=== PATIENT | female | born 1990 | race Caucasian/White ===

== ENCOUNTER → 2018-08-22 | Outpatient (CLI) | payer OTHER ==
[2018-08-22 13:58] VITALS: BP 141/79; PULSE 80; RESP 16; TEMP 97.4; BMI 55.4
--- NOTE | 2018-08-22 14:44 | P.HPOB ---
History of Present Illness H&P Date: 08/22/18 Chief Complaint: The patient is here for her routine gynecologic exam. This is a 28-year-old G0 with an LMP of 08/15/2018. She is here to establish with this office. It has been about 2 years since her last pelvic exam. Her fianc is status post vasectomy. Menstrual periods are about everyone to 1 1/2 months. She has experienced slight pruritus in the region of the pubic hair. She denies any vaginal discharge. She states she can feel small areas that feel like grains of sand near the clitoris and occasionally can be painful. Review of Systems She believes she has lost about 23 pounds with Adipex. She denies respiratory, cardiac, or G.I. problems. Past Medical History Past Medical History: Diabetes Mellitus, Hypertension, Osteoarthritis (OA) Additional Past Medical History / Comment(s): DEPRESSION,BORDERLINE DIABETIC. Kidney stone 2011. 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 History of Any Multi-Drug Resistant Organisms: None Reported Additional Past Surgical History / Comment(s): 2007 COSMETIC LEFT EYE Past Psychological History: Depression Additional Psychological History / Comment(s): NON SUICIDAL Smoking Status: Never smoker Past Alcohol Use History: None Reported Past Drug Use History: None Reported, Marijuana Additional Drug Use History / Comment(s): Used in medical marijuana in the past for arthritis. Discontinued April 2018 per the patient. Additional History: She is engaged to be and the date has been tentatively set in January 2019. 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 - Past Family History Father Family Medical History: Cancer Additional Family Medical History / Comment(s): Lung cancer. Mother Family Medical History: No Reported History Additional Family Medical History / Comment(s): Maternal grandmother had renal failure. Medications and Allergies Home Medications Medication Instructions Recorded Confirmed Type FLUoxetine HCL 20 mg PO DAILY 08/21/18 08/22/18 History Ibuprofen [Motrin] 800 mg PO PRN 08/21/18 08/21/18 History Phentermine HCl [Adipex-P] 37.5 mg PO DAILY 08/21/18 08/22/18 History Lisinopril [Zestril] 10 mg PO DAILY 08/22/18 08/22/18 History Allergies Allergy/AdvReac Type Severity Reaction Status Date / Time Sulfa (Sulfonamide Allergy Rash/Hives Verified 08/21/18 11:36 Antibiotics) Exam Vital Signs Temp Pulse Resp BP Pulse Ox 08/22/18 13:24 97.4 F L 80 16 141/79 97 Intake and Output 08/21/18 08/22/18 08/22/18 22:59 06:59 14:59 Other: Weight 141.974 kg Height 5'3", weight 313 pounds, BMI 55.4. This is a well-developed well-nourished obese white female who is alert and oriented times 3 in no acute distress. HEENT: Within normal limits. NECK: Supple without mass or thyromegaly. CHEST AND LUNGS: Clear to auscultation. HEART: Regular rate and rhythm. BREASTS: Are without mass or discharge. The right nipple has a piercing which is noninflamed. AXILLARY EXAM: Negative for adenopathy. BACK: Negative for CVA tenderness. ABDOMEN: Soft, obese, nontender, without palpable masses. PELVIC EXAM: there is a small 2 mm inclusion cyst at the anterior aspect of the right labia minora near the clitoris. Patient states she has felt this when she feels in that area. It is nontender and noninflamed. It appears benign. The rest of the external genitalia is within normal limits. Cervix and vagina appear normal. There is no unusual discharge. There is no evidence of prolapse. There is no cervical motion tenderness. The uterus is midposition, nongravid size and nontender. There are no palpable adnexal masses or tenderness. RECTAL EXAM: deferred EXTREMITIES: Nontender. IMPRESSION: 1. 28-year-old female with benign appearing small right labia minora inclusion cyst measuring 2 mm. 2. Vulvar pruritus without evidence of noe vaginitis. 3. Obesity. PLAN: 1. Pap smear was performed. 2. Self breast awareness was discussed with the patient. 3. I have reassured the patient regarding the labial inclusion cyst. She will check it on a regular basis and let me know if it is increasing in size, becom ing more painful or if problems. I have asked her to not try to squeeze it or pop the cyst. 4. Kenalog 0.1% cream BID PRN for Vulvar pruritus. The electronic prescription will be sent to [facility] pharmacy on [address] 5. She will return in one year and PRN. 6. The patient has an appointment to see Dr. Logan regarding bariatric surgery for her obesity.
== END ==
LOC: WWCWWP 13:07
PROVIDERS: ATTEND Obstetrics & Gynecology
DX: Z53.9 Procedure and treatment not carried out, unspecified reason (principal)

== ENCOUNTER → 2018-08-24 | Outpatient (CLI) | payer OTHER ==
[2018-08-24 13:25] VITALS: BP 127/84; PULSE 88; RESP 16; TEMP 98; BMI 52.6
--- NOTE | 2018-08-24 13:56 | P.HPBAR ---
Bariatric H&P - History & Physicial H&P Date: 08/24/18 History & Physicial: Visit/CC: Patient initial contact: Initial weight: Initial weight in pounds: Height: Initial BMI: Last weight: Current weight: Current weight in pounds: Current BMI: [place] body weight (based on NIH guidelines): Excess body weight loss: The patient is a 28 year-old F who presents for Bariatric Assessment. Patient here today for new bariatric assessment. Patient has had complaints of her morbid obesity since she was a teenager. She has tried a variety of different weight loss methods. Currently interested in sleeve gastrectomy. She has many friends that of had both a sleeve gastrectomy and other bariatric procedures. Patient suffers from diabetes, hypertension, arthritis, GERD symptoms. No history of EGD, no dysphagia, no history of DVT. Patient BMI currently 52. Patient is actually lost 32 pounds with last 3 months. She is 3 months into her supervised weight loss program. Review of Systems The patient denies any acute changes in vision or hearing, no dysphagia or odynophagia, no chest pain or shortness of breath, no dysuria or hematuria, no headache, no runny nose, no rectal bleeding or melena, no unexplained weight loss Past Medical History Past Medical History: Diabetes Mellitus, Hypertension, Osteoarthritis (OA) Additional Past Medical History / Comment(s): DEPRESSION,BORDERLINE DIABETIC. Kidney stone 2011. 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 History of Any Multi-Drug Resistant Organisms: None Reported Additional Past Surgical History / Comment(s): 2006 COSMETIC LEFT EYE Past Anesthesia/Blood Transfusion Reactions: No Reported Reaction Past Psychological History: Depression Additional Psychological History / Comment(s): NON SUICIDAL Smoking Status: Never smoker Past Alcohol Use History: None Reported Past Drug Use History: None Reported, Marijuana Additional Drug Use History / Comment(s): Used in medical marijuana in the past for arthritis. Discontinued April 2018 per the patient. - Past Family History Mother Family Medical History: CVA/TIA Father Additional Family Medical History / Comment(s): alcoholic Surgical - Exam Physical exam: General: Well-developed, well-nourished HEENT: Normocephalic, sclerae nonicteric Abdomen: Nontender, nondistended Extremities: No edema Neuro: Alert and oriented Bariatric Assessment & Plan (1) Morbid obesity due to excess calories Narrative/Plan: The risks and benefits of the various bariatric procedures were discussed in detail with the patient. The patient remains interested in sleeve gastrectomy. The patient would like to have the sleeve gastrectomy performed prior to her wedding in January. We'll tentatively plan EGD in October or November. Preoperative lab work ordered. Patient will be seen back in the clinic prior to scheduling. Status: Acute Bariatric Checklist Checklist: Plan: Checklist: EGD: 1. Hiatal hernia: 2. H. Pylori: HgbA1c: Vitamin D: Smoking: Never smoker Primary care physician referral: Psychiatry clearance: Cardiology clearance: Sleep study: Diet journal: VTE risk score: VTE risk level: Rehab needs at discharge:
[2018-08-24 14:36] LABS: HCT 36.2 % (34.0-46.0); HGB 11.5 gm/dL (11.4-16.0); MCH 26.3 pg (25.0-35.0); MCHC 31.8 g/dL (31.0-37.0); MCV 82.7 fL (80.0-100.0); Mean Platelet Volume 5.8; Platelet Count 432 k/uL (150-450); RBC 4.37 m/uL (3.80-5.40); RDW 13.9 % (11.5-15.5); WBC 10.8 k/uL (3.8-10.6)
[2018-08-24 18:03] LABS: Albumin 4.3 g/dL (3.80-4.90); Albumin/Globulin Ratio 1.65 (1.60-3.17); Anion Gap 9.7 mmol/L (4.00-12.00); Calcium 9.2 mg/dL (8.7-10.3); Carbon Dioxide 25.3 mmol/L (21.6-31.8); Globulin 2.6 g/dL (1.6-3.3); Potassium 3.8 mmol/L (3.5-5.5); Total Bilirubin 0.4 mg/dL (0.2-1.2); Total Protein 6.9 g/dL (6.2-8.2)
[2018-08-24 18:10] LABS: Vitamin D 25 Hydroxy 25.6 ng/mL (30.0-100.0)
[2018-08-24 18:18] LABS: Folate, Serum >24.0 ng/mL
== END ==
LOC: BARWHC3 12:51
PROVIDERS: ATTEND Surgery
DX: E66.01 Morbid (severe) obesity due to excess calories (principal); K90.89 Other intestinal malabsorption; E55.9 Vitamin D deficiency, unspecified; E11.9 Type 2 diabetes mellitus without complications; Z68.43 Body mass index [BMI] 50.0-59.9, adult
CPT/HCPCS: 84425; 80053; 82607; 82746; 83540; 85027; 82306; 93005; G0463; 99211

== ENCOUNTER 2018-10-04 07:15 | Day surgery (SDC) | payer OTHER ==
[2018-09-28 11:37] VITALS: BMI 53.4
[~2018-10-04 07:15] MED LIST: LACTATED RINGERS 1,000 ML IV SCH; LIDOCAINE 1% 20 ML VIAL (10MG/ML) FOR IV START INTRADERMA PRN
[2018-10-04 07:43] VITALS: TEMP 98.2
[2018-10-04] MEDS ORDERED: LACTATED RINGERS 1,000 ML IV ONE (07:47)
[2018-10-04] MEDS ORDERED: PROPOFOL 10 MG/ML 20 ML VIAL IV ONE (07:53)
--- NOTE | 2018-10-04 08:03 | P.GSHP ---
History of Present Illness H&P Date: 10/04/18 Chief Complaint: gerd Patient presents today for upper endoscopy. Patient is being evaluated for sleeve gastrectomy. Patient has mild reflux symptoms. Denies dysphagia. Past Medical History Past Medical History: Diabetes Mellitus, GERD/Reflux, Hypertension, Osteoarthritis (OA), Skin Disorder Additional Past Medical History / Comment(s): occ palpitations, migraines, skin rash in winter with dry patches, "borderline diabetic"-diet control, anemia, hx kidney stone History of Any Multi-Drug Resistant Organisms: None Reported Additional Past Surgical History / Comment(s): 2006 COSMETIC LEFT EYE Past Anesthesia/Blood Transfusion Reactions: No Reported Reaction Past Psychological History: Anxiety, Depression Additional Psychological History / Comment(s): . Smoking Status: Never smoker Past Alcohol Use History: Occasional Past Drug Use History: None Reported, Marijuana Additional Drug Use History / Comment(s): Used in medical marijuana in the past for arthritis. Discontinued April 2018 per the patient. - Past Family History Father Family Medical History: Cancer Additional Family Medical History / Comment(s): Lung cancer. Mother Family Medical History: No Reported History Additional Family Medical History / Comment(s): Maternal grandmother had renal failure. Medications and Allergies Home Medications Medication Instructions Recorded Confirmed Type FLUoxetine HCL 20 mg PO DAILY 08/21/18 09/28/18 History Ibuprofen [Motrin] 800 mg PO TID PRN 08/21/18 09/28/18 History Phentermine HCl [Adipex-P] 37.5 mg PO DAILY 08/21/18 09/28/18 History Lisinopril [Zestril] 10 mg PO HS 08/22/18 09/28/18 History Iron(Dose Unknown) 1 tab PO BID 09/28/18 09/28/18 History Multivitamin [Multivitamins Adult 2 each PO DAILY 09/28/18 09/28/18 History Gummies] [place]-3 Gummies 2 tab PO DAILY 09/28/18 09/28/18 History Allergies Allergy/AdvReac Type Severity Reaction Status Date / Time Sulfa (Sulfonamide Allergy Rash/Hives Verified 09/28/18 11:28 Antibiotics) Surgical - Exam Vital Signs Temp Pulse Resp BP Pulse Ox 98.2 F 86 20 144/76 98 10/04/18 07:41 10/04/18 07:41 10/04/18 07:41 10/04/18 07:41 10/04/18 07:41 Physical exam: General: Well-developed, well-nourished HEENT: Normocephalic, sclerae nonicteric Abdomen: Nontender, nondistended Extremities: No edema Neuro: Alert and oriented Assessment and Plan (1) GERD (gastroesophageal reflux disease) Narrative/Plan: Will proceed with upper endoscopy. Current Visit: Yes Status: Acute Code(s): K21.9 - GASTRO-ESOPHAGEAL REFLUX DISEASE WITHOUT ESOPHAGITIS SNOMED Code(s): 439546479
--- NOTE | 2018-10-04 08:09 | P.PCN ---
Date of Procedure: 10/04/18 Procedure(s) Performed: Preoperative Dx: GERD, presurgical Postoperative Dx: Mild gastritis Procedure: EGD with Bx Anesthesia: Sedation Endoscopist: Dr. Logan Specimens: Antrum Endoscopic Procedure: The patient was on the endoscopy table in the left decubitus position. The Olympus gastroscope was inserted into the oropharynx and passed under direct visualization to the region of the third portion of the duodenum. From that point the scope was slowly withdrawn inspecting all surfaces carefully. There were no neoplastic inflammatory or polypoid lesions throughout the duodenum. The pylorus was widely patent. The stomach was carefully inspected. There was mild gastritis present. A biopsy of the antrum took place to rule out H. pylori. Retroflexion revealed a normal hiatus. The esophagus was then carefully examined. There were no neoplastic inflammatory or polypoid lesions throughout the visualized esophagus. The patient was then taken to the recovery room in stable condition per anesthesia guidelines. Recommendations: Await biopsy results. Proceed with upcoming sleeve gastrectomy.
[2018-10-04 08:18] VITALS: RESP 16
[2018-10-04 08:47] VITALS: BP 116/75; PULSE 73
== END 2018-10-04 08:59 | disposition home or self-care (01) ==
LOC: ORWHC2ENDO 07:15
PROVIDERS: ATTEND Surgery
DX: K29.50 Unspecified chronic gastritis without bleeding (principal); K21.9 Gastro-esophageal reflux disease without esophagitis; E11.9 Type 2 diabetes mellitus without complications; I10 Essential (primary) hypertension; F41.9 Anxiety disorder, unspecified; F32.9 Major depressive disorder, single episode, unspecified; Z79.1 Long term (current) use of non-steroidal anti-inflammatories (NSAID); Z79.899 Other long term (current) drug therapy; Z88.2 Allergy status to sulfonamides; M19.90 Unspecified osteoarthritis, unspecified site; Z87.442 Personal history of urinary calculi
CPT/HCPCS: 81025; 88305; 43239; J2704

== ENCOUNTER → 2018-11-27 | Outpatient (CLI) | payer OTHER ==
[2018-11-27 13:59] VITALS: BMI 53.5
== END | disposition home or self-care (01) ==
LOC: BARWHC3 08:37
PROVIDERS: ATTEND Surgery
DX: E66.01 Morbid (severe) obesity due to excess calories (principal); Z68.43 Body mass index [BMI] 50.0-59.9, adult
CPT/HCPCS: 97804

== ENCOUNTER → 2019-01-02 | Outpatient (CLI) | payer OTHER ==
[2019-01-02 13:45] VITALS: BP 103/65; PULSE 90; RESP 16; TEMP 98; BMI 54.6
--- NOTE | 2019-01-02 14:32 | P.BASOAP ---
Subjective Progress Note Date: 01/02/19 Principal diagnosis: Morbid obesity Patient here today for follow-up visit. Last seen in September. Had upper endoscopy showing mild gastritis at that time. Still interested in sleeve gastrectomy. Did demonstrate slow steady weight loss with her supervised diets visits. No change in her medical history. Objective - Vital Signs Vital signs: Vital Signs Temp 98 F 01/02/19 13:42 Pulse 90 01/02/19 13:42 Resp 16 01/02/19 13:42 BP 103/65 01/02/19 13:42 Pulse Ox Intake & Output 01/01/19 01/02/19 01/02/19 18:59 06:59 18:59 Weight 143.335 kg - Exam Abdomen: Soft, nontender, nondistended Assessment/Plan (1) Morbid obesity due to excess calories Narrative/Plan: Surgical consent form reviewed with the patient in details. Risks and benefits discussed. All questions answered. Patient remains interested in sleeve gastrectomy. Surgery tentatively scheduled on 02/02. Plan: Date: 01/02/19 Initial Weight: 137.892 kg Initial BMI: 52.6 Current Weight: 143.335 kg Current BMI: 54.6 Type of Surgery: Total Volume in Band: Previous Volume: Volume Removed: Volume Added: Band Size:
== END | disposition home or self-care (01) ==
LOC: BARWHC3 13:25
PROVIDERS: ATTEND Surgery
DX: E66.01 Morbid (severe) obesity due to excess calories (principal); Z68.43 Body mass index [BMI] 50.0-59.9, adult
CPT/HCPCS: 99211

== ENCOUNTER → 2019-01-02 | Outpatient (CLI) | payer OTHER ==
[2019-01-02 15:35] LABS: Basophils # (A) 0.1 k/uL (0-0.2); Basophils % (A) 1 %; Eosinophils # (A) 0.3 k/uL (0-0.7); Eosinophils % (A) 2 %; HCT 37.9 % (34.0-46.0); HGB 11.9 gm/dL (11.4-16.0); Lymphocytes # (A) 2.9 k/uL (1.0-4.8); Lymphocytes % (A) 23 %; MCH 26.6 pg (25.0-35.0); MCHC 31.3 g/dL (31.0-37.0); Mean Platelet Volume 6.1; Monocytes # (A) 0.7 k/uL (0-1.0); Monocytes % (A) 6 %; Neutrophils # (A) 8.3 k/uL (1.3-7.7); Neutrophils % (A) 66 %; Platelet Count 397 k/uL (150-450); RBC 4.46 m/uL (3.80-5.40); WBC 12.5 k/uL (3.8-10.6)
[2019-01-02 15:38] LABS: ALT 22 U/L (9-52); AST 21 U/L (14-36); African American GFR (CKD) >90 (>60 ml/min/1.73 sqM); Albumin 4.2 g/dL (3.5-5.0); Alkaline Phosphatase 73 U/L (38-126); Anion Gap 8 mmol/L; Blood Urea Nitrogen 15 mg/dL (7-17); Calcium 9.5 mg/dL (8.4-10.2); Carbon Dioxide 27 mmol/L (22-30); Chloride 104 mmol/L (98-107); Glucose 97 mg/dL (74-99); Sodium 139 mmol/L (137-145); Total Bilirubin 0.3 mg/dL (0.2-1.3); Total Protein 7.6 g/dL (6.3-8.2)
== END | disposition home or self-care (01) ==
LOC: LABPAT 14:35
PROVIDERS: ATTEND Surgery
DX: Z01.818 Encounter for other preprocedural examination (principal); Z01.812 Encounter for preprocedural laboratory examination
CPT/HCPCS: 36415; 80053; 85025; 93005

== ENCOUNTER 2019-02-02 07:01 | Inpatient (IN) | payer OTHER ==
[~2019-02-02 07:01] MED LIST changes: +ACETAMINOPHEN TAB 500 MG TAB PO ONE; +DEXAMETHASONE SOD PHOSPHATE 10 MG/ML 1 ML VIAL IV ONE; +ENOXAPARIN 40 MG/0.4 ML SYRINGE SQ ONE; -LACTATED RINGERS 1,000 ML IV SCH; +MELOXICAM 7.5 MG TAB PO ONE; +MIDAZOLAM 2 MG/2 ML VIAL IV PRN; +ONDANSETRON 4 MG/2 ML VIAL IVP ONE; +SCOPOLAMINE 1.5MG/72HR PATCH TRANSDERM ONE; +ceFAZolin 3 GM in SODIUM CHLORIDE 0.9% 100 ML IVPB ONE
--- NOTE | 2019-02-02 07:40 | P.GSHP ---
History of Present Illness H&P Date: 02/02/19 Chief Complaint: Morbid obesity Patient today for elective sleeve gastrectomy. The patient is been followed in the outpatient setting. She is not interested in alternative bariatric procedures. Recent upper endoscopy showed gastritis but no hiatal hernia. Patient has history of diabetes, hypertension, GERD, arthritis. No history of DVT or dysphagia in the past. Preoperative levels were low. She was told is related to her heavy menstrual flow and she is on iron supplementation. Past Medical History Past Medical History: Diabetes Mellitus, GERD/Reflux, Hypertension, Osteoarthritis (OA) Additional Past Medical History / Comment(s): Occ palpitations, "borderline diabetic"-diet control, Anemia, hx kidney stone. Varicose Veins. RLS. History of Any Multi-Drug Resistant Organisms: None Reported Additional Past Surgical History / Comment(s): 2006 COSMETIC LEFT EYE. EGD. Past Anesthesia/Blood Transfusion Reactions: Family History of Problems w/ Anesthesia Additional Past Anesthesia/Blood Transfusion Reaction / Comment(s): MOTHER HAD SEVERE PONV Smoking Status: Never smoker - Past Family History Mother Family Medical History: CVA/TIA Father Additional Family Medical History / Comment(s): alcoholic Medications and Allergies Home Medications Medication Instructions Recorded Confirmed Type FLUoxetine HCL 20 mg PO DAILY 08/21/18 01/25/19 History Phentermine HCl [Adipex-P] 37.5 mg PO DAILY 08/21/18 01/25/19 History Lisinopril [Zestril] 10 mg PO HS 08/22/18 01/25/19 History Calcium Carbonate [Tums] 1,000 mg PO QID PRN 01/25/19 01/25/19 History Ibuprofen [Motrin] 800 mg PO Q8H PRN 01/25/19 01/25/19 History Multivitamin [Multivitamins Adult 2 each PO DAILY 01/25/19 01/25/19 History Gummies] Allergies Allergy/AdvReac Type Severity Reaction Status Date / Time Sulfa (Sulfonamide Allergy Rash/Hives Verified 01/25/19 12:07 Antibiotics) Surgical - Exam Vital Signs Temp Pulse Resp BP Pulse Ox 97.7 F 83 16 154/70 97 02/02/19 07:32 02/02/19 07:32 02/02/19 07:32 02/02/19 07:32 02/02/19 07:32 Physical exam: General: Well-developed, well-nourished HEENT: Normocephalic, sclerae nonicteric Abdomen: Nontender, nondistended Extremities: No edema Neuro: Alert and oriented Assessment and Plan (1) Morbid obesity due to excess calories Narrative/Plan: Will proceed with laparoscopic sleeve gastrectomy at this time, possible open. The risks of bleeding, infection, stenosis, stricture, leak, abscess, fistula formation, peritonitis, poor weight loss, reflux, vomiting, conversion to an open procedure, aborting sleeve gastrectomy, OK, PE, DVT, and were discussed. The patient understands and wishes to proceed. Current Visit: No Status: Acute Code(s): E66.01 - MORBID (SEVERE) OBESITY DUE TO EXCESS CALORIES SNOMED Code(s): 761896134
[2019-02-02] MEDS: LACTATED RINGERS 1,000 ML IV SCH (07:43)
[2019-02-02] MEDS ORDERED: ROCURONIUM BROMIDE 10 MG/ML 10 ML VIAL IV ONE (07:55)
[2019-02-02] MEDS ORDERED: GLYCOPYRROLATE 0.2 MG/ML 2 ML VIAL ONE (07:55)
[2019-02-02] MEDS ORDERED: NEOSTIGMINE 1 MG/ML 10 ML VIAL ONE (07:55)
[2019-02-02] MEDS ORDERED: fentaNYL (PF) 50 MCG/ML 2 ML AMP ONE (07:55)
[2019-02-02] MEDS ORDERED: HYDROmorphone (PF) 1 MG/ML ONE (07:55)
[2019-02-02] MEDS ORDERED: PROPOFOL 10 MG/ML 20 ML VIAL IV ONE (07:55)
[2019-02-02] MEDS ORDERED: MIDAZOLAM 2 MG/2 ML VIAL ONE (07:55)
[2019-02-02] MEDS ORDERED: SUCCINYLCHOLINE CHLORIDE 100 MG/5 ML SYR IV ONE (07:55)
[2019-02-02] MEDS ORDERED: LIDOCAINE 1% INJ 10MG/ML (20 ML MDV) ONE (07:55)
[2019-02-02 07:57] LABS: Glucose,Whole Blood 79 mg/dL (75-99)
[2019-02-02] MEDS ORDERED: BUPIVACAIN-EPI 0.25%-1:200,000 30 ML VIAL SQ ONE ×2 (08:24)
[2019-02-02] MEDS ORDERED: ONDANSETRON 4 MG/2 ML VIAL IVP ONE (09:02)
[2019-02-02] MEDS ORDERED: LACTATED RINGERS 1,000 ML IV ONE (09:32)
[2019-02-02] MEDS ORDERED: NALOXONE 0.4 MG/ML 1 ML VIAL IV PRN (09:55)
[2019-02-02] MEDS ORDERED: HYOSCYAMINE ORAL DROPS 1.875 MG/15 ML BOTTLE PO PRN (09:55)
[2019-02-02] MEDS ORDERED: diphenhydrAMINE 50 MG/ML 1 ML VIAL IVP PRN (09:55)
--- NOTE | 2019-02-02 09:59 | P.OP ---
Date of Procedure: 02/02/19 Procedure(s) Performed: PREOPERATIVE DIAGNOSIS: Morbid obesity, hypertension, GERD, arthritis, diabetes POSTOPERATIVE DIAGNOSIS: Same PROCEDURE: Laparoscopic sleeve gastrectomy SURGEON: Desmond EBL: Minimal ANESTHESIA: General COMPLICATIONS: None OPERATIVE PROCEDURE: Patient was placed in the operating table in the supine position. She was placed under general anesthesia at that time. The abdomen was prepped and draped in sterile fashion after the patient was placed in lithotomy. A 5 mm optical trocar was used to enter the abdominal cavity in the left upper quadrant. Insufflation took place to 15 millimeters mercury. An additional right subxiphoid 5 mm trocar was then placed under direct visuali zation and then removed. 2 additional 5 mm trochars were placed in the right upper quadrant and left upper quadrant under direct visualization and a 15 mm trocar in the supraumbilical location. The liver was retracted using a medium Rody liver retractor through the right subxiphoid trocar site. The hiatus was inspected. The patient had no visible hiatal hernia At that point I moved to the mid aspect of the greater curvature the stomach. The short gastric vasculature was divided using a LigaSure device proximally. I then switched and divided the short gastrics distally to a 3-4 cm from the pylorus. The dissection took place up to the left diaphragmatic crura at that point. The posterior short gastrics were likewise divided using the LigaSure device. Once the stomach was fully mobilized the blunt tipped 40-Lebanese bougie dilator was advanced into the stomach and advanced all the way to the prepyloric location. A black echelon 60 stapler was utilized and fired tangentially across the antrum taking care to avoid narrowing at the incisura angularis. Subsequent firings of the stapler took place. A total of 4 green echelon 60 staplers with seam guard took place proximally staying on the outer edge of our dilator. Once we reached the most proximal portion of the stomach a single firing of the gold echelon 60 stapler without seem guard took place. The oral gastric tube was reinserted. The stomach was insufflated with approximately 100 mL of methylene blue. No evidence of leak or obstruction was seen. The distal aspect of the sleeve was then reapproximated to the gastrosplenic and gastrocolic ligament using a short running 2-0 strata fix suture. This was done to prevent kinking or twisting of the sleeve. Tisseel fibrin glue was then used along the length of the staple line. The stomach remnant was removed from the 15 mm trocar site without difficulty. The fascia at the 15 more site was closed using interrupted 0 Vicryl sutures with the laparoscopic suture passer and Merlin Gwen technique. The insufflation was evacuated. The skin at all 5 incisions were closed using 4-0 Monocryl sutures. Skin glue was then applied. DISPOSITION: Stable to recovery room
[2019-02-02] MEDS: HYDROmorphone 0.5 MG/0.5 ML SYRINGE IVP PRN ×4 (10:00→10:22)
[2019-02-02] MEDS: ALBUTEROL NEBULIZED 2.5 MG/3 ML INHALATION SCH ×3 (11:43→20:36)
[2019-02-02 11:53] VITALS: BMI 53.1
[2019-02-02] MEDS ORDERED: ACETAMINOPHEN IV (For NPO) 1,000 MG in EMPTY BAG 1 BAG IVPB ONE (12:00)
[2019-02-02] MEDS: HYDROmorphone 1 MG/ML 1 ML SYRINGE IVP PRN ×3 (13:57→23:04)
[2019-02-02] MEDS: 0.9% NACL WITH KCL 20 MEQ/L 1,000 ML IV SCH ×2 (15:40→19:41)
[2019-02-02] MEDS: ONDANSETRON 4 MG/2 ML VIAL IVP PRN (15:40)
[2019-02-02 17:46] LABS: Glucose,Whole Blood 127 mg/dL (75-99)
[2019-02-02] MEDS: ENOXAPARIN 40 MG/0.4 ML SYRINGE SQ SCH (19:50)
[2019-02-02] MEDS: LISINOPRIL 10 MG TAB PO SCH (19:52)
[2019-02-02] MEDS ORDERED: MELATONIN 5 MG TABLET PO PRN (20:59)
[2019-02-02] MEDS ORDERED: BENZOCAINE/MENTHOL LOZENG 1 EACH LOZENGE MUCOUS MEM PRN (21:00)
--- NOTE | 2019-02-02 22:03 | P.CONS ---
History of Present Illness - Reason for Consult Consult date: 02/02/19 Medical management of hypertension and other medical problems - Chief Complaint s/p Laparoscopic sleeve gastrectomy - History of Present Illness Patient is a 29-year-old female with a known history of hypertension, diabetes type 2, GERD, osteoarthritis and morbid obesity was admitted to the hospital for elective sleeve gastrectomy. Patient probably the procedure very well. Recent upper endoscopy showed gastritis but no hiatal hernia. Patient underwent laparoscopic sleeve gastrectomy today. Currently denied any complaints of chest pain or shortness of breath. Patient is complaining of nausea. No episodes of vomiting. No headache or dizziness or lightheadedness. Pain is fairly controlled. Review of Systems Constitutional: Patient denies any fever or chills . No generalized weakness or weight loss. Abdomen: Does have nausea and soreness at the surgical site. No episodes of vomiting.. Cardiovascular: Patient denies any chest pain or short of breath no palpitations. Respiratory: patient denied any cough is from production. No shortness of breath Neurologic: Patient denied any numbness or tingling headache. Musculoskeletal: Patient denies any complaints of joint swelling or deformity. Skin: Negative Psychiatric: Negative Endocrine: No heat or cold intolerance. No recent weight gain. Genitourinary: No dysuria or hematuria. All other 14 point ROS negative except the above Past Medical History Past Medical History: Diabetes Mellitus, GERD/Reflux, Hypertension, Osteoar thritis (OA) Additional Past Medical History / Comment(s): Occ palpitations, "borderline diabetic"-diet control, Anemia, hx kidney stone. Varicose Veins. RLS. History of Any Multi-Drug Resistant Organisms: None Reported Additional Past Surgical History / Comment(s): 2006 COSMETIC LEFT EYE. EGD. Past Anesthesia/Blood Transfusion Reactions: Family History of Problems w/ Anesthesia Additional Past Anesthesia/Blood Transfusion Reaction / Comm: MOTHER HAD SEVERE PONV Past Psychological History: Anxiety, Depression Smoking Status: Never smoker Past Alcohol Use History: Occasional Past Drug Use History: Marijuana Additional Drug Use History / Comment(s): Used in medical marijuana in the past for arthritis. Discontinued April 2018 per the patient. - Past Family History Mother Family Medical History: CVA/TIA Father Additional Family Medical History / Comment(s): alcoholic Medications and Allergies Home Medications Medication Instructions Recorded Confirmed Type FLUoxetine HCL 20 mg PO DAILY 08/21/18 02/02/19 History Phentermine HCl [Adipex-P] 37.5 mg PO DAILY 08/21/18 02/02/19 History Lisinopril [Zestril] 10 mg PO HS 08/22/18 02/02/19 History Calcium Carbonate [Tums] 1,000 mg PO QID PRN 01/25/19 02/02/19 History Ibuprofen [Motrin] 800 mg PO Q8H PRN 01/25/19 02/02/19 History Multivitamin [Multivitamins Adult 2 tab PO DAILY 01/25/19 02/02/19 History Gummies] Allergies Allergy/AdvReac Type Severity Reaction Status Date / Time Sulfa (Sulfonamide Allergy Rash/Hives Verified 02/02/19 12:32 Antibiotics) Physical Exam Vitals: Vital Signs Temp Pulse Pulse Pulse Pulse Resp BP 02/02/19 12:10 72 146/80 02/02/19 12:01 02/02/19 11:56 86 02/02/19 11:55 77 127/69 02/02/19 11:47 78 02/02/19 11:40 69 138/63 02/02/19 11:25 87 137/65 02/02/19 11:10 97.5 F L 83 16 145/85 02/02/19 10:45 72 16 124/58 02/02/19 10:30 74 16 121/58 02/02/19 10:17 75 16 134/65 02/02/19 10:00 72 16 146/70 02/02/19 09:45 97.8 F 83 14 158/88 02/02/19 07:32 97.7 F 83 16 154/70 Pulse Ox 02/02/19 12:10 97 02/02/19 12:01 99 02/02/19 11:56 02/02/19 11:55 99 02/02/19 11:47 02/02/19 11:40 97 02/02/19 11:25 97 02/02/19 11:10 96 02/02/19 10:45 98 02/02/19 10:30 94 L 02/02/19 10:17 97 02/02/19 10:00 16 L 02/02/19 09:45 100 02/02/19 07:32 97 Intake and Output 02/01/19 02/02/19 02/02/19 22:59 06:59 14:59 Intake Total 1800 Output Total 10 Balance 1790 Intake: IV 1800 Output: Estimated Blood Loss 10 PHYSICAL EXAMINATION: Patient is lying in the bed comfortably, no acute distress, awake alert and oriented.. HEENT: Normocephalic. Neck is supple. Pupils reactive. Nostrils clear. Oral cavity is moist. Ears reveal no drainage. Neck reveals no JVD, carotid bruits, or thyromegaly. CHEST EXAMINATION: Trachea is central. Symmetrical expansion. Lung nolan clear to auscultation and percussion. CARDIAC: Normal S1, S2 with no gallops. No murmurs ABDOMEN: Soft. Bowel sounds diminished. No organomegaly. No abdominal bruits. Extremities: reveal no edema. No clubbing or cyanosis Neurologically awake, alert, oriented x3 with well-coordinated movements. No focal deficits noted Skin: No rash or skin lesions. Psychiatric: Coperative. Nonsuicidal Musculoskeletal: No joint swelling or deformity. Normal range of motion. Assessment and Plan Assessment: Status post sleeve gastrectomy postoperative day 0 Hypertension controlled patient is on losartan at home. Diabetes type 2. Diet-controlled borderline. GERD Osteoarthritis History of nephrolithiasis Anxiety/depression History of marijuana use/medical marijuana Morbid obesity is BMI 54.7 DVT prophylaxis. On Lovenox subcu Plan: Patient be continued on IV hydration. And pain management and bowel regimen. Continue with DVT prophylaxis with Lovenox. Blood pressure medications will be continued tomorrow. Otherwise continue the current management and further recommendations based on the clinical course. Time with Patient: Greater than 30
[2019-02-02] MEDS: METOCLOPRAMIDE 5 MG/ML 2 ML VIAL IVP PRN (23:04)
[2019-02-03] MEDS: 0.9% NACL WITH KCL 20 MEQ/L 1,000 ML IV SCH (02:02)
[2019-02-03] MEDS: LACTATED RINGERS 1,000 ML IV SCH (02:03)
[2019-02-03] MEDS: ONDANSETRON 4 MG/2 ML VIAL IVP PRN ×2 (05:14→23:46)
[2019-02-03] MEDS: HYDROmorphone 1 MG/ML 1 ML SYRINGE IVP PRN ×2 (05:14→09:31)
[2019-02-03] MEDS: SIMETHICONE 40 MG/0.6 ML DROPS 2,000 MG/30 ML BOTTLE PO PRN ×2 (05:14→18:41)
[2019-02-03] MEDS: ALBUTEROL NEBULIZED 2.5 MG/3 ML INHALATION SCH ×4 (07:18→21:02)
[2019-02-03 08:07] LABS: Basophils % (A) 0 %; Eosinophils % (A) 0 %; HCT 34.6 % (34.0-46.0); Lymphocytes # (A) 1.3 k/uL (1.0-4.8); Lymphocytes % (A) 10 %; MCH 26.8 pg (25.0-35.0); MCHC 31.7 g/dL (31.0-37.0); MCV 84.8 fL (80.0-100.0); Mean Platelet Volume 6.8; Monocytes # (A) 0.7 k/uL (0-1.0); Monocytes % (A) 5 %; Neutrophils # (A) 11.4 k/uL (1.3-7.7); Neutrophils % (A) 84 %; Platelet Count 398 k/uL (150-450); RBC 4.08 m/uL (3.80-5.40); RDW 14.4 % (11.5-15.5); WBC 13.6 k/uL (3.8-10.6)
--- NOTE | 2019-02-03 08:30 | FL ---
EXAMINATION TYPE: FL UGI DATE OF EXAM: 02/03/2019 COMPARISON: None HISTORY: Post gastric sleeve TECHNIQUE: A single contrast UGI study is performed. FINDINGS: Contrast passes from the distal esophagus through the gastric sleeve with mild hesitancy. N o extravasation of contrast is evident. No free air is noted during this examination. Overhead radiographs were obtained which are unremarkable. Fluoroscopy time: 27 seconds Images: 13 IMPRESSIONS: 1. Normal post gastric sleeve without obstruction or hesitancy. No extravasation.
[2019-02-03 08:48] LABS: African American GFR (CKD) >90 (>60 ml/min/1.73 sqM); Anion Gap 10 mmol/L; Blood Urea Nitrogen 6 mg/dL (7-17); Calcium 8.6 mg/dL (8.4-10.2); Carbon Dioxide 24 mmol/L (22-30); Chloride 106 mmol/L (98-107); Magnesium 1.9 mg/dL (1.6-2.3); Phosphorus 2.8 mg/dL (2.5-4.5); Potassium 4.2 mmol/L (3.5-5.1); Sodium 140 mmol/L (137-145)
[2019-02-03] MEDS: FLUoxetine HCL 20 MG CAP PO SCH (09:27)
[2019-02-03] MEDS: PANTOPRAZOLE 40 MG/10 ML VIAL IV SCH (09:27)
[2019-02-03] MEDS: ENOXAPARIN 40 MG/0.4 ML SYRINGE SQ SCH ×2 (09:27→21:34)
[2019-02-03] MEDS: METOCLOPRAMIDE 5 MG/ML 2 ML VIAL IVP PRN (09:32)
--- NOTE | 2019-02-03 09:47 | P.PN ---
Subjective Progress Note Date: 02/03/19 Principal diagnosis: Morbid obesity Patient doing well today. Nausea improved. Upper GI looks good. White blood cell count 13.6. Objective - Vital Signs Vital signs: Vital Signs Temp 98 F 02/03/19 07:00 Pulse 78 02/03/19 07:00 Resp 12 02/03/19 07:00 BP 164/89 02/03/19 07:00 Pulse Ox 99 02/03/19 07:00 Intake & Output 02/02/19 02/03/19 02/03/19 18:59 06:59 18:59 Intake Total 2100 2400 Output Total 10 Balance 2089 2400 Intake: IV 2100 0.9% NaCl with KCl 20 Meq 300 /l 1,000 ml @ 150 mls/hr IV .Q6H40M SIDNEY Rx#: [id number] Intake, IV Titration 2400 Amount 0.9% NaCl with KCl 20 Meq 2400 /l 1,000 ml @ 150 mls/hr IV .Q6H40M SIDNEY Rx#: [id number] Output: Estimated Blood Loss 10 Other: Voiding Method Toilet # Voids 1 3 - Exam Abdomen: Soft, nondistended, incisions clean and dry - Labs CBC & Chem 7: 02/03/19 07:21 02/03/19 07:21 Labs: Abnormal Lab Results - Last 24 Hours (Table) 02/02/19 02/03/19 02/03/19 Range/Units 17:25 07:21 07:21 WBC 13.6 H (3.8-10.6) k/uL Hgb 11.0 L (11.4-16.0) gm/dL Neutrophils # 11.4 H (1.3-7.7) k/uL BUN 6 L (7-17) mg/dL POC Glucose (mg/dL) 127 H (75-99) mg/dL Assessment and Plan (1) Morbid obesity due to excess calories Narrative/Plan: (Bariatric clears. Add Toradol for pain control. Ambulate. Current Visit: No Status: Acute Code(s): E66.01 - MORBID (SEVERE) OBESITY DUE TO EXCESS CALORIES SNOMED Code(s): 538918967
[2019-02-03] MEDS: KETOROLAC 30 MG/ML 1 ML VIAL IVP SCH ×3 (12:44→23:42)
[2019-02-03] MEDS: LISINOPRIL 10 MG TAB PO SCH (21:37)
[2019-02-04] MEDS: ONDANSETRON 4 MG/2 ML VIAL IVP PRN (00:22)
[2019-02-04] MEDS: LACTATED RINGERS 1,000 ML IV SCH (03:26)
[2019-02-04] MEDS: KETOROLAC 30 MG/ML 1 ML VIAL IVP SCH (05:47)
[2019-02-04 07:47] LABS: Basophils % (A) 0 %; Eosinophils % (A) 1 %; HCT 30.9 % (34.0-46.0); HGB 10.2 gm/dL (11.4-16.0); Lymphocytes # (A) 1.8 k/uL (1.0-4.8); Lymphocytes % (A) 23 %; MCHC 32.9 g/dL (31.0-37.0); MCV 85.1 fL (80.0-100.0); Mean Platelet Volume 6.5; Monocytes # (A) 0.5 k/uL (0-1.0); Monocytes % (A) 6 %; Neutrophils # (A) 5.5 k/uL (1.3-7.7); Neutrophils % (A) 70 %; Platelet Count 293 k/uL (150-450); RBC 3.63 m/uL (3.80-5.40); RDW 14.1 % (11.5-15.5); WBC 7.9 k/uL (3.8-10.6)
[2019-02-04 07:57] VITALS: BP 141/81; RESP 12; TEMP 98.8
[2019-02-04] MEDS ORDERED: BISACODYL 5 MG TABLET.DR PO PRN (08:00)
[2019-02-04] MEDS: PANTOPRAZOLE 40 MG/10 ML VIAL IV SCH (08:03)
[2019-02-04] MEDS: ENOXAPARIN 40 MG/0.4 ML SYRINGE SQ SCH (08:03)
[2019-02-04] MEDS: FLUoxetine HCL 20 MG CAP PO SCH (08:04)
[2019-02-04] MEDS: SIMETHICONE 40 MG/0.6 ML DROPS 2,000 MG/30 ML BOTTLE PO PRN (08:04)
[2019-02-04 08:17] LABS: African American GFR (CKD) >90 (>60 ml/min/1.73 sqM); Anion Gap 7 mmol/L; Blood Urea Nitrogen 7 mg/dL (7-17); Calcium 8.2 mg/dL (8.4-10.2); Carbon Dioxide 23 mmol/L (22-30); Chloride 110 mmol/L (98-107); Glucose 76 mg/dL (74-99); Potassium 4.1 mmol/L (3.5-5.1); Sodium 140 mmol/L (137-145)
[2019-02-04] MEDS: ALBUTEROL NEBULIZED 2.5 MG/3 ML INHALATION SCH ×2 (09:09→12:18)
[2019-02-04 09:42] VITALS: PULSE 73
--- NOTE | 2019-02-04 10:50 | P.DS ---
Providers Date of admission: 02/02/19 09:56 Expected date of discharge: 02/04/19 Attending physician: Genaro Logan Consults: 02/02/19 09:59 Consult Physician Routine Consulting Provider: Cas Higgins Consult Reason/Comments: Medical management Do you want consulting provider notified?: Yes Primary care physician: Nicholas Gross - Discharge Diagnosis(es) (1) Morbid obesity due to excess calories Patient underwent elective sleeve gastrectomy 2 days ago. Postoperatively the patient has done well. She is tolerating good liquid volume. Upper GI showed no leak or obstruction. White blood cell count today is normal. We'll discharged today. Follow-up Tuesday in the bariatric center. Current Visit: No Status: Acute Plan - Discharge Summary Discharge Rx Participant: Yes New Discharge Prescriptions: New Bisacodyl [Dulcolax] 5 mg PO DAILY PRN #10 tablet.dr PRN Reason: Constipation Simethicone 40 mg/0.6 ml Drops [Mylicon Drops] 40 mg PO PCHS PRN #30 ml PRN Reason: Gas Ondansetron Odt [Zofran Odt] 4 mg PO Q8HR PRN #9 tab PRN Reason: Nausea Hydrocodone/Acetaminophen [[place] 5-325] 1 tab PO Q6HR PRN 3 Days #10 tab PRN Reason: Pain No Action Phentermine HCl [Adipex-P] 37.5 mg PO DAILY FLUoxetine HCL 20 mg PO DAILY Lisinopril [Zestril] 10 mg PO HS Multivitamin [Multivitamins Adult Gummies] 2 tab PO DAILY Ibuprofen [Motrin] 800 mg PO Q8H PRN PRN Reason: Pain Calcium Carbonate [Tums] 1,000 mg PO QID PRN PRN Reason: GERD Discharge Medication List FLUoxetine HCL 20 mg PO DAILY 08/21/18 [History] Phentermine HCl [Adipex-P] 37.5 mg PO DAILY 08/21/18 [History] Lisinopril [Zestril] 10 mg PO HS 08/22/18 [History] Calcium Carbonate [Tums] 1,000 mg PO QID PRN 01/25/19 [History] Ibuprofen [Motrin] 800 mg PO Q8H PRN 01/25/19 [History] Multivitamin [Multivitamins Adult Gummies] 2 tab PO DAILY 01/25/19 [History] Bisacodyl [Dulcolax] 5 mg PO DAILY PRN #10 tablet. 02/04/19 [Rx] Hydrocodone/Acetaminophen [[place] 5-325] 1 tab PO Q6HR PRN 3 Days #10 tab 02/04/19 [Rx] Ondansetron Odt [Zofran Odt] 4 mg PO Q8HR PRN #9 tab 02/04/19 [Rx] Simethicone 40 mg/0.6 ml Drops [Mylicon Drops] 40 mg PO PCHS PRN #30 ml 02/04/19 [Rx] Follow up Appointment(s)/Referral(s): Bariatric Center,. [NON-STAFF] - 02/06/19 Patient Instructions/Handouts: Laparoscopic Sleeve Gastrectomy (DC)
--- NOTE | 2019-02-05 22:44 | P.PN ---
Subjective Progress Note Date: 02/03/19 Principal diagnosis: Status post sleeve gastrectomy Patient is a 29-year-old female with a known history of hypertension, diabetes type 2, GERD, osteoarthritis and morbid obesity was admitted to the hospital for elective sleeve gastrectomy. Patient probably the procedure very well. Recent upper endoscopy showed gastritis but no hiatal hernia. Patient underwent laparoscopic sleeve gastrectomy today. Currently denied any complaints of chest pain or shortness of breath. Patient is complaining of nausea. No episodes of vomiting. No headache or dizziness or lightheadedness. Pain is fairly controlled. 02/03/2019 Patient is complaining of abdominal soreness. Nausea and episodes of vomiting. No fever no chills. Started on Clear liquids. No complaints of chest pain or shortness of breath. No fever or chills. No other acute overnight issues. Blood sugars controlled. Current medications reviewed. Objective - Vital Signs Vital signs: Vital Signs Temp 98.4 F 02/03/19 20:06 Pulse 88 02/03/19 20:06 Resp 15 02/03/19 20:06 BP 133/69 02/03/19 20:06 Pulse Ox 98 02/03/19 20:06 Intake & Output 02/03/19 02/03/19 02/04/19 06:59 18:59 06:59 Intake Total 2400 1615 Balance 2400 1615 Intake: IV 800 Mvi, Adult No.4 with Vit 800 K 10 ml Thiamine 100 mg Folic Acid 1 mg In 0.9% NaCl with KCl 20 Meq/l 1, 000 ml @ 100 mls/hr IV . BY DURATION SIDNEY Rx#: [id number] Intake, IV Titration 2400 615 Amount 0.9% NaCl with KCl 20 Meq 2400 /l 1,000 ml @ 150 mls/hr IV .Q6H40M SIDNEY Rx#: [id number] Mvi, Adult No.4 with Vit 615 K 10 ml Thiamine 100 mg Folic Acid 1 mg In 0.9% NaCl with KCl 20 Meq/l 1, 000 ml @ 100 mls/hr IV . BY DURATION SIDNEY Rx#: [id number] Oral 200 Other: Voiding Method Toilet # Voids 3 1 - Exam PHYSICAL EXAMINATION: Patient is lying in the bed comfortably, no acute distress, awake alert and oriented.. HEENT: Normocephalic. Neck is supple. Pupils reactive. Nostrils clear. Oral cavity is moist. Ears reveal no drainage. Neck reveals no JVD, carotid bruits, or thyromegaly. CHEST EXAMINATION: Trachea is central. Symmetrical expansion. Lung nolan clear to auscultation and percussion. CARDIAC: Normal S1, S2 with no gallops. No murmurs ABDOMEN: Soft. Bowel sounds diminished. No organomegaly. No abdominal bruits. Extremities: reveal no edema. No clubbing or cyanosis Neurologically awake, alert, oriented x3 with well-coordinated movements. No focal deficits noted Skin: No rash or skin lesions. Psychiatric: Coperative. Nonsuicidal Musculoskeletal: No joint swelling or deformity. Normal range of motion. - Labs CBC & Chem 7: 02/04/19 07:12 02/04/19 07:12 Labs: Abnormal Lab Results - Last 24 Hours (Table) 02/03/19 02/03/19 Range/Units 07:21 07:21 WBC 13.6 H (3.8-10.6) k/uL Hgb 11.0 L (11.4-16.0) gm/dL Neutrophils # 11.4 H (1.3-7.7) k/uL BUN 6 L (7-17) mg/dL Assessment and Plan Assessment: Status post sleeve gastrectomy postoperative day 1 Hypertension controlled patient is on losartan at home. Diabetes type 2. Diet-controlled borderline. GERD Osteoarthritis History of nephrolithiasis Anxiety/depression History of marijuana use/medical marijuana Morbid obesity is BMI 54.7 DVT prophylaxis. On Lovenox subcu Plan: Patient be continued on IV hydration. And pain management and bowel regimen. Continue with DVT prophylaxis with Lovenox. Blood pressure medications will be continued. Otherwise continue the current management and further recommendations based on the clinical course. Time with Patient: Greater than 30
--- NOTE | 2019-02-05 22:45 | P.PN ---
Subjective Progress Note Date: 02/04/19 Principal diagnosis: Status post sleeve gastrectomy Patient is a 29-year-old female with a known history of hypertension, diabetes type 2, GERD, osteoarthritis and morbid obesity was admitted to the hospital for elective sleeve gastrectomy. Patient probably the procedure very well. Recent upper endoscopy showed gastritis but no hiatal hernia. Patient underwent laparoscopic sleeve gastrectomy today. Currently denied any complaints of chest pain or shortness of breath. Patient is complaining of nausea. No episodes of vomiting. No headache or dizziness or lightheadedness. Pain is fairly controlled. 02/03/2019 Patient is complaining of abdominal soreness. Nausea and episodes of vomiting. No fever no chills. Started on Clear liquids. No complaints of chest pain or shortness of breath. No fever or chills. No other acute overnight issues. Blood sugars controlled. 02/04/2019 Patient denied a complaints of chest pain or short of breath. No complains abdominal pain. No nausea vomiting. Tolerating oral diet. No fever no chills. No other acute overnight issues. Blood pressure is controlled. Patient is being discharged home today. Discharge medication reconciliation was done. Current medications reviewed. Objective - Vital Signs Vital signs: Vital Signs Temp 98.8 F 02/04/19 07:00 Pulse 74 02/04/19 09:18 Resp 12 02/04/19 08:00 BP 141/81 02/04/19 07:00 Pulse Ox 99 02/04/19 09:09 Intake & Output 02/03/19 02/04/19 02/04/19 18:59 06:59 18:59 Intake Total 1615 300 Balance 1615 300 Intake: IV 800 Mvi, Adult No.4 with Vit 800 K 10 ml Thiamine 100 mg Folic Acid 1 mg In 0.9% NaCl with KCl 20 Meq/l 1, 000 ml @ 100 mls/hr IV . BY DURATION SIDNEY Rx#: [id number] Intake, IV Titration 615 Amount Mvi, Adult No.4 with Vit 615 K 10 ml Thiamine 100 mg Folic Acid 1 mg In 0.9% NaCl with KCl 20 Meq/l 1, 000 ml @ 100 mls/hr IV . BY DURATION SIDNEY Rx#: [id number] Oral 200 300 Other: Voiding Method Toilet Toilet # Voids 2 - Exam PHYSICAL EXAMINATION: Patient is lying in the bed comfortably, no acute distress, awake alert and oriented.. HEENT: Normocephalic. Neck is supple. Pupils reactive. Nostrils clear. Oral cavity is moist. Ears reveal no drainage. Neck reveals no JVD, carotid bruits, or thyromegaly. CHEST EXAMINATION: Trachea is central. Symmetrical expansion. Lung nolan clear to auscultation and percussion. CARDIAC: Normal S1, S2 with no gallops. No murmurs ABDOMEN: Soft. Bowel sounds diminished. No organomegaly. No abdominal bruits. Extremities: reveal no edema. No clubbing or cyanosis Neurologically awake, alert, oriented x3 with well-coordinated movements. No focal deficits noted Skin: No rash or skin lesions. Psychiatric: Coperative. Nonsuicidal Musculoskeletal: No joint swelling or deformity. Normal range of motion. - Labs CBC & Chem 7: 02/04/19 07:12 02/04/19 07:12 Labs: Abnormal Lab Results - Last 24 Hours (Table) 02/04/19 02/04/19 Range/Units 07:12 07:12 RBC 3.63 L (3.80-5.40) m/uL Hgb 10.2 L (11.4-16.0) gm/dL Hct 30.9 L (34.0-46.0) % Chloride 110 H (98-107) mmol/L Calcium 8.2 L (8.4-10.2) mg/dL Assessment and Plan Assessment: Status post sleeve gastrectomy postoperative day 2 Hypertension controlled patient is on losartan at home. Diabetes type 2. Diet-controlled borderline. GERD Osteoarthritis History of nephrolithiasis Anxiety/depression History of marijuana use/medical marijuana Morbid obesity is BMI 54.7 DVT prophylaxis. On Lovenox subcu Plan: Started on oral diet and is tolerating that.. Continue with DVT prophylaxis with Lovenox. Blood pressure medications will be continued upon discharge. Otherwise continue the current management and further recommendations based on the clinical course. Follow with primary care physician in next 2-4 days. Time with Patient: Greater than 30
== END 2019-02-04 12:42 | disposition home or self-care (01) | DRG 621 ==
LOC: UNDOADMIN 07:01 → 2ORMAIN 07:01 → INTOOBSV 09:27 → 4SSUR 09:27 → OBSVTOIN 09:56 → 4SSUR 10:59 → 2ORMAIN 10:59
PROVIDERS: ADMIT Surgery; ATTEND Surgery
PROC: 0DB64Z3 Excision of Stomach, Percutaneous Endoscopic Approach, Vertical (ICD-10-PCS; principal; 2019-02-02 08:00)
DX: E66.01 Morbid (severe) obesity due to excess calories (principal); Z68.43 Body mass index [BMI] 50.0-59.9, adult; E11.9 Type 2 diabetes mellitus without complications; K29.70 Gastritis, unspecified, without bleeding; G25.81 Restless legs syndrome; I10 Essential (primary) hypertension; K21.9 Gastro-esophageal reflux disease without esophagitis; F32.9 Major depressive disorder, single episode, unspecified; F41.9 Anxiety disorder, unspecified; I83.90 Asymptomatic varicose veins of unspecified lower extremity; M19.90 Unspecified osteoarthritis, unspecified site; Z79.899 Other long term (current) drug therapy; Z87.442 Personal history of urinary calculi; Z86.2 Personal history of diseases of the blood and blood-forming organs and certain disorders involving the immune mechanism; Z88.2 Allergy status to sulfonamides; Z82.3 Family history of stroke; Z81.1 Family history of alcohol abuse and dependence
CPT/HCPCS: 74240; 80048; 80051; 81025; 82310; 82565; 83735; 84100; 84520; 85025; 88307; 94640; 94760; 94762

== ENCOUNTER → 2019-02-06 | Outpatient (CLI) | payer OTHER ==
[2019-02-06 14:46] VITALS: BP 154/96; PULSE 46; TEMP 98.2; BMI 52.6
--- NOTE | 2019-02-06 15:28 | P.BASOAP ---
Subjective Progress Note Date: 02/06/19 Principal diagnosis: Morbid obesity Patient returns for postop check. Had sleeve gastrectomy 02/02. Fairly well since that time. 40 ounces of liquids per day. Some pain in the morning when she first wakes up at her umbilicus. Mild indigestion. No heartburn. No vomiting. No fevers. Objective - Vital Signs Vital signs: Vital Signs Temp 98.2 F 02/06/19 14:40 Pulse 46 L 02/06/19 14:40 Resp BP 154/96 02/06/19 14:40 Pulse Ox Intake & Output 02/05/19 02/06/19 02/06/19 18:59 06:59 18:59 Weight 137.937 kg - Exam Abdomen: Soft, nondistended, incision clean dry Assessment/Plan (1) Morbid obesity due to excess calories Narrative/Plan: Patient doing well at this time. Continue postoperative diet. Continue light duties for now. May return to work next Tuesday. Follow-up with me 2 weeks. Continue antiacids. Plan: Date: 02/06/19 Initial Weight: 137.892 kg Initial BMI: 52.6 Current Weight: 137.937 kg Current BMI: 52.6 Type of Surgery: Vertical Sleeve Gastrectomy Total Volume in Band: Previous Volume: Volume Removed: Volume Added: Band Size:
== END | disposition home or self-care (01) ==
LOC: BARWHC3 13:06
PROVIDERS: ATTEND Surgery
DX: Z48.815 Encounter for surgical aftercare following surgery on the digestive system (principal); E66.01 Morbid (severe) obesity due to excess calories; Z68.43 Body mass index [BMI] 50.0-59.9, adult; Z98.84 Bariatric surgery status
CPT/HCPCS: 97802; G0463; 99211

== ENCOUNTER → 2019-03-01 | Outpatient (CLI) | payer OTHER ==
[2019-03-01 15:22] VITALS: BP 117/84; PULSE 71; RESP 16; TEMP 98.3
[2019-03-01 15:29] VITALS: BMI 49.8
--- NOTE | 2019-03-01 15:55 | P.BASOAP ---
Subjective Progress Note Date: 03/01/19 Principal diagnosis: Morbid obesity 29-year-old female here today for follow-up evaluation. Surgery one month ago for sleeve gastrectomy. Has had excellent weight loss since last visit. Still hungry at times. Mild dysphagia at times. No vomiting. Denies any significant pain. Mild left-sided pain with exertion. No fevers. Normal heart rate. Objective - Vital Signs Vital signs: Vital Signs Temp 98.3 F 03/01/19 15:20 Pulse 71 03/01/19 15:20 Resp 16 03/01/19 15:20 BP 117/84 03/01/19 15:20 Pulse Ox Intake & Output 02/28/19 03/01/19 03/01/19 18:59 06:59 18:59 Weight 130.635 kg - Exam Abdomen: Soft, nondistended, incisions clean and dry, small stitch material removed from umbilical incision Assessment/Plan (1) Morbid obesity due to excess calories Narrative/Plan: Patient doing well postoperatively. Continue antiacids. Check one month labs at this time. Follow-up one month. Plan: Date: 03/01/19 Initial Weight: 137.892 kg Initial BMI: 52.6 Current Weight: 130.635 kg Current BMI: 49.8 Type of Surgery: Vertical Sleeve Gastrectomy Total Volume in Band: Previous Volume: Volume Removed: Volume Added: Band Size:
[2019-03-01 16:19] LABS: HCT 35.4 % (34.0-46.0); HGB 11.9 gm/dL (11.4-16.0); MCH 28.1 pg (25.0-35.0); MCHC 33.5 g/dL (31.0-37.0); MCV 83.7 fL (80.0-100.0); Platelet Count 268 k/uL (150-450); RBC 4.23 m/uL (3.80-5.40); RDW 13.9 % (11.5-15.5); WBC 7.1 k/uL (3.8-10.6)
[2019-03-02 01:00] LABS: African American GFR (CKD) 141.8 (60.0-200.0); Albumin 4.3 g/dL (3.80-4.90); Albumin/Globulin Ratio 1.95 (1.60-3.17); Anion Gap 9.4 mmol/L (4.00-12.00); BUN/Creat Ratio 16.67 Ratio (12.00-20.00); Calcium 9.1 mg/dL (8.7-10.3); Carbon Dioxide 23.6 mmol/L (21.6-31.8); Globulin 2.2 g/dL (1.6-3.3); Potassium 3.9 mmol/L (3.5-5.5); Total Bilirubin 0.5 mg/dL (0.3-1.2); Total Protein 6.5 g/dL (6.2-8.2)
[2019-03-02 01:14] LABS: Vitamin D 25 Hydroxy 22.1 ng/mL (30.0-100.0)
[2019-03-02 01:15] LABS: Folate, Serum 13.4 ng/mL
== END | disposition home or self-care (01) ==
LOC: BARWHC3 14:58
PROVIDERS: ATTEND Surgery
DX: Z48.815 Encounter for surgical aftercare following surgery on the digestive system (principal); K90.89 Other intestinal malabsorption; E55.9 Vitamin D deficiency, unspecified; K90.9 Intestinal malabsorption, unspecified; E66.01 Morbid (severe) obesity due to excess calories; Z68.42 Body mass index [BMI] 45.0-49.9, adult; Z98.84 Bariatric surgery status
CPT/HCPCS: 80053; 82746; 83540; 84630; 85027; 82306; 97803; G0463; 99211

== ENCOUNTER → 2019-04-03 | Outpatient (CLI) | payer OTHER ==
[2019-04-03 15:18] VITALS: BP 122/77; PULSE 101; RESP 16; TEMP 98.2; BMI 46.1
--- NOTE | 2019-04-03 15:56 | P.BASOAP ---
Subjective Progress Note Date: 04/03/19 Principal diagnosis: Morbid obesity Patient returns today for reevaluation. Doing well since last visit. Her pain that she had been experiencing has resolved completely. Denies heartburn. No vomiting. 21 pound weight loss since last visit. Still having knee and back pain. Patient is requesting resuming intermittent NSAID use. Labs checked last visit revealed low iron and low vitamin D. She remains on those supplements. Objective - Vital Signs Vital signs: Vital Signs Temp 98.2 F 04/03/19 15:15 Pulse 101 H 04/03/19 15:15 Resp 16 04/03/19 15:15 BP 122/77 04/03/19 15:15 Pulse Ox Intake & Output 04/02/19 04/03/19 04/03/19 18:59 06:59 18:59 Weight 121.109 kg - Exam Abdomen: Soft, nontender, nondistended Assessment/Plan (1) Morbid obesity due to excess calories Narrative/Plan: Patient doing well at this time. Continue vitamin D iron calcium and multivitamin. Follow-up 1 month. We'll check a 3 month labs at that time. Continue antiacids for now. Discussed options of NSAID use. Will resume 600- 800 mg of NSAID to be used infrequently with meals. Plan: Date: 04/03/19 Initial Weight: 137.892 kg Initial BMI: 52.6 Current Weight: 121.109 kg Current BMI: 46.1 Type of Surgery: Total Volume in Band: Previous Volume: Volume Removed: Volume Added: Band Size:
== END | disposition home or self-care (01) ==
LOC: BARWHC3 14:55
PROVIDERS: ATTEND Surgery
DX: E66.01 Morbid (severe) obesity due to excess calories (principal); Z68.42 Body mass index [BMI] 45.0-49.9, adult; Z79.899 Other long term (current) drug therapy
CPT/HCPCS: 97803; G0463; 99211

== ENCOUNTER → 2019-05-08 | Outpatient (CLI) | payer OTHER ==
[2019-05-08 15:33] VITALS: BP 121/70; PULSE 76; TEMP 98; BMI 43.0
--- NOTE | 2019-05-08 16:38 | P.BASOAP ---
Subjective Progress Note Date: 05/08/19 Principal diagnosis: Morbid obesity Patient returns for bariatric evaluation. Last seen 04/03. We discussed last visit starting NSAIDs for her chronic back and knee pain however she states she did not have to. She has lost an additional 18 pounds since her last visit. He had no heartburn until today. She thinks is related to the Prozac that she started this morning. Some depression. Occasionally she has episodes of upper abdominal tightness and early satiety. She is not taking her daily antiacids. He has not been exercising. She is due for 3 month labs at this time. Objective - Vital Signs Vital signs: Vital Signs Temp 98.0 F 05/08/19 15:28 Pulse 76 05/08/19 15:28 Resp BP 121/70 05/08/19 15:28 Pulse Ox Intake & Output 05/07/19 05/08/19 05/08/19 18:59 06:59 18:59 Weight 112.945 kg - Exam Abdomen: Soft, nontender, nondistended Assessment/Plan (1) Morbid obesity due to excess calories Narrative/Plan: Overall patient doing fairly well. Excellent weight loss. Continue dietary and exercise regimen. Check 3 month labs at this time. Resume antiacid therapy. F ollow-up 4-6 weeks. Plan: Date: 05/08/19 Initial Weight: 137.892 kg Initial BMI: 52.6 Current Weight: 112.945 kg Current BMI: 43.0 Type of Surgery: Total Volume in Band: Previous Volume: Volume Removed: Volume Added: Band Size:
[2019-05-08 16:51] LABS: HCT 35.7 % (34.0-46.0); HGB 11.5 gm/dL (11.4-16.0); MCHC 32.2 g/dL (31.0-37.0); MCV 86.9 fL (80.0-100.0); Mean Platelet Volume 6.4; Platelet Count 265 k/uL (150-450); RBC 4.11 m/uL (3.80-5.40); RDW 13.7 % (11.5-15.5)
[2019-05-09 01:17] LABS: African American GFR (CKD) 141.8 (60.0-200.0); Albumin 4.3 g/dL (3.80-4.90); Albumin/Globulin Ratio 1.95 (1.60-3.17); Anion Gap 7.9 mmol/L (4.00-12.00); BUN/Creat Ratio 16.67 Ratio (12.00-20.00); Calcium 9.4 mg/dL (8.7-10.3); Carbon Dioxide 27.1 mmol/L (21.6-31.8); Folate, Serum 20.2 ng/mL; Globulin 2.2 g/dL (1.6-3.3); Non-African American GFR(CKD) 122.3 (60.0-200.0); Potassium 3.8 mmol/L (3.5-5.5); Total Bilirubin 0.4 mg/dL (0.2-1.2); Total Protein 6.5 g/dL (6.2-8.2)
== END | disposition home or self-care (01) ==
LOC: BARWHC3 15:10
PROVIDERS: ATTEND Surgery
DX: E66.01 Morbid (severe) obesity due to excess calories (principal); K90.89 Other intestinal malabsorption; E55.9 Vitamin D deficiency, unspecified; Z68.41 Body mass index [BMI] 40.0-44.9, adult
CPT/HCPCS: 84425; 80053; 82607; 82746; 83540; 85027; 82306; 97803; 36415; G0463; 99211

== ENCOUNTER → 2019-06-19 | Outpatient (CLI) | payer OTHER ==
[2019-06-19 14:34] VITALS: BP 125/84; PULSE 61; RESP 16; TEMP 98.5; BMI 39.1
--- NOTE | 2019-06-19 16:51 | P.BASOAP ---
Subjective Progress Note Date: 06/19/19 Principal diagnosis: Morbid obesity Patient returns today for evaluation. She was in the emergency department once again for kidney stones. She has lost another 25 pounds since last visit. Since complaining of some hair loss. Drinking about 45-50 ounces daily. Protein intake proximally 60 g per day. Objective - Vital Signs Vital signs: Vital Signs Temp 98.5 F 06/19/19 14:32 Pulse 61 06/19/19 14:32 Resp 16 06/19/19 14:32 BP 125/84 06/19/19 14:32 Pulse Ox Intake & Output 06/18/19 06/19/19 06/19/19 18:59 06:59 18:59 Weight 102.512 kg - Exam Abdomen: Soft, nontender, nondistended Assessment/Plan (1) Morbid obesity due to excess calories Narrative/Plan: Patient doing relatively well however unfortunately still suffering with intermittent colic from ureteral stone. Apparently our local urologist are not excepting her insurance. Patient will try to reach out to urology outside of town for an evaluation. Continue increasing protein and liquid intake. Plan follow-up 1 month. We'll check labs at that time. Plan: Date: 06/19/19 Initial Weight: 137.892 kg Initial BMI: 52.6 Current Weight: 102.512 kg Current BMI: 39.1 Type of Surgery: Total Volume in Band: Previous Volume: Volume Removed: Volume Added: Band Size:
== END | disposition home or self-care (01) ==
LOC: BARWHC3 13:57
PROVIDERS: ATTEND Surgery
DX: E66.01 Morbid (severe) obesity due to excess calories (principal); N20.1 Calculus of ureter; Z68.39 Body mass index [BMI] 39.0-39.9, adult
CPT/HCPCS: 99211

== ENCOUNTER → 2019-07-19 | Outpatient (CLI) | payer OTHER ==
--- NOTE | 2019-07-19 09:48 | XR ---
EXAMINATION TYPE: XR abdomen 1V DATE OF EXAM: 07/19/2019 9:41 AM CLINICAL HISTORY: Abdominal pain greater on the left than right. TECHNIQUE: Single supine KUB image of the abdomen is obtained. COMPARISON: None. FINDINGS: Scattered gas is seen in non-distended small bowel loops. Gas and fecal material is seen in non-distended colon. Limited evaluation for pneumoperitoneum given the supine technique. The lung ba ses are clear and the osseous structures are intact. Numerous phleboliths are incidentally seen withi n the pelvis. Mild degenerative changes of the femoral acetabular joints. IMPRESSION: Nonobstructive bowel gas pattern.
--- NOTE | 2019-07-19 14:38 | US ---
EXAMINATION TYPE: US abdomen comp/pelvis limited DATE OF EXAM: 07/19/2019 COMPARISON: NONE CLINICAL HISTORY: R10.9 unspecified abdominal pain. lower abdominal pain, gastric sleeve 01/29, histo ry of kidney stones EXAM MEASUREMENTS: Liver Length: 11.7 cm Gallbladder Wall: 0.3 cm CBD: 0.3 cm Spleen: 11.0 cm Right Kidney: 10.1 x 4.2 x 5.2 cm Left Kidney: 11.2 x 4.8 x 5.0 cm Pancreas: Pancreatic head and tail are obscured by bowel gas Liver: wnl Gallbladder: multiple stones CBD: appears wnl Spleen: wnl Right Kidney: no evidence of hydronephrosis Left Kidney: no evidence of hydronephrosis Upper IVC: wnl Abd Aorta: wnl Bladder: appears wnl Bilateral Jets Seen no IMPRESSION: Cholelithiasis without sonographic evidence of acute cholecystitis. Otherwise unremarkabl e abdominal ultrasound.
== END | disposition home or self-care (01) ==
LOC: RADUSMAIN 08:53
PROVIDERS: ATTEND Family Medicine
DX: N20.0 Calculus of kidney (principal); K80.20 Calculus of gallbladder without cholecystitis without obstruction
CPT/HCPCS: 74018; 76700; 76857

== ENCOUNTER → 2019-07-24 | Outpatient (CLI) | payer OTHER ==
[2019-07-24 15:10] VITALS: BP 149/88; PULSE 61; RESP 16; TEMP 97.9; BMI 34.7
--- NOTE | 2019-07-24 16:53 | P.BASOAP ---
Subjective Progress Note Date: 07/24/19 Principal diagnosis: Morbid obesity Patient doing well with her weight loss. 25 pounds down since last visit. Still dealing with kidney stone related issues. Also recently found have gallstones. Admits to mild right upper quadrant pain randomly. States she did have some of this pain preoperatively. Stop taking her antiacids. Does have some dysphagia intermittently. Recent ultrasound showed gallstones without inflammatory changes. Pain does radiate to the right shoulder at times. No change in the color of her skin urine or stool. Last set of liver enzymes normal. Objective - Vital Signs Vital signs: Vital Signs Temp 97.9 F 07/24/19 15:07 Pulse 61 07/24/19 15:07 Resp 16 07/24/19 15:07 BP 149/88 07/24/19 15:07 Pulse Ox Intake & Output 07/23/19 07/24/19 07/24/19 18:59 06:59 18:59 Weight 91.172 kg - Exam Abdomen: Soft, nontender, nondistended Assessment/Plan (1) Morbid obesity due to excess calories Narrative/Plan: Patient doing well at this time. Continue dietary and exercise regimen. Await urology evaluation. We'll tentatively schedule cholecystectomy electively as outpatient. Plan: Date: 07/24/19 Initial Weight: 137.892 kg Initial BMI: 52.6 Current Weight: 91.172 kg Current BMI: 34.7 Type of Surgery: Total Volume in Band: Previous Volume: Volume Removed: Volume Added: Band Size:
== END | disposition home or self-care (01) ==
LOC: BARWHC3 14:55
PROVIDERS: ATTEND Surgery
DX: E66.01 Morbid (severe) obesity due to excess calories (principal); Z68.34 Body mass index [BMI] 34.0-34.9, adult; R10.11 Right upper quadrant pain; R13.10 Dysphagia, unspecified; K80.20 Calculus of gallbladder without cholecystitis without obstruction; N20.0 Calculus of kidney
CPT/HCPCS: 99211

== ENCOUNTER 2019-08-17 10:06 | Day surgery (SDC) | payer OTHER ==
[2019-08-16 08:42] VITALS: BMI 34.7
--- NOTE | 2019-08-17 08:05 | P.GSHP ---
History of Present Illness H&P Date: 08/17/19 Chief Complaint: Chronic cholecystitis 29-year-old female known to our service. Patient underwent recent sleeve gastrectomy. Lately she has had complaints of right upper quadrant pain. Recent ultrasound was performed showing gallstones. Pain does radiate to the shoulder at times. Denies any change in the color of her skin urine or stool. Liver enzymes normal. Past Medical History Past Medical History: Diabetes Mellitus, GERD/Reflux, Hypertension, Osteoarthritis (OA), Skin Disorder Additional Past Medical History / Comment(s): occ palpitations, migraines, skin rash in winter with dry patches, "borderline diabetic"-diet control, anemia, hx kidney stone History of Any Multi-Drug Resistant Organisms: None Reported Past Surgical History: Bariatric Surgery Additional Past Surgical History / Comment(s): 2006 COSMETIC LEFT EYE, gastric sleeve 02/02/19 (Dr. Logan) Past Anesthesia/Blood Transfusion Reactions: No Reported Reaction Additional Past Anesthesia/Blood Transfusion Reaction / Comment(s): MOTHER HAD SEVERE PONV Smoking Status: Never smoker - Past Family History Mother Family Medical History: CVA/TIA Father Additional Family Medical History / Comment(s): alcoholic Medications and Allergies Home Medications Medication Instructions Recorded Confirmed Type Omeprazole 40 mg PO DAILY 02/06/19 08/16/19 History Linzess (Unkn.Dose) 1 tab PO DAILY PRN 08/16/19 08/16/19 History Thiamine [Vitamin B-1] 50 mg PO DAILY 08/16/19 08/16/19 History traMADol HCL [Ultram] 50 mg PO TID PRN 08/16/19 08/16/19 History Allergies Allergy/AdvReac Type Severity Reaction Status Date / Time Sulfa (Sulfonamide Allergy Rash/Hives Verified 08/16/19 08:36 Antibiotics) Surgical - Exam Physical exam: General: Well-developed, well-nourished HEENT: Normocephalic, sclerae nonicteric Abdomen: Nontender, nondistended Extremities: No edema Neuro: Alert and oriented Assessment and Plan (1) Chronic cholecystitis Narrative/Plan: Will proceed with laparoscopic cholecystectomy at this time. Risks of bleeding, infection, bile leak, bile duct injury, retained common bile duct stone, trocar injury, conversion to an open procedure, hernia, anesthesia related complications were reviewed. The patient understands and wishes to proceed. Status: Acute Code(s): K81.1 - CHRONIC CHOLECYSTITIS SNOMED Code(s): 64424776
[~2019-08-17 10:06] MED LIST changes: -ACETAMINOPHEN TAB 500 MG TAB PO ONE; -ENOXAPARIN 40 MG/0.4 ML SYRINGE SQ ONE; +LACTATED RINGERS 1,000 ML IV SCH; +LIDOCAINE 1% (10MG/ML) FOR IV START INTRADERMA PRN; -LIDOCAINE 1% 20 ML VIAL (10MG/ML) FOR IV START INTRADERMA PRN; -MELOXICAM 7.5 MG TAB PO ONE; -SCOPOLAMINE 1.5MG/72HR PATCH TRANSDERM ONE; -ceFAZolin 3 GM in SODIUM CHLORIDE 0.9% 100 ML IVPB ONE
[2019-08-17 10:41] LABS: Glucose,Whole Blood 78 mg/dL (75-99)
[2019-08-17] MEDS ORDERED: HEPARIN SODIUM,PORCINE 5,000 UNIT/ML 1 ML VIAL SQ ONE (11:43)
[2019-08-17] MEDS ORDERED: NEOSTIGMINE 1 MG/ML 10 ML VIAL ONE (11:44)
[2019-08-17] MEDS ORDERED: PROPOFOL 10 MG/ML 20 ML VIAL IV ONE (11:44)
[2019-08-17] MEDS ORDERED: fentaNYL (PF) 50 MCG/ML 2 ML AMP ONE (11:44)
[2019-08-17] MEDS ORDERED: GLYCOPYRROLATE 0.2 MG/ML 2 ML VIAL ONE (11:44)
[2019-08-17] MEDS ORDERED: ROCURONIUM BROMIDE 10 MG/ML 5 ML VIAL IV ONE (11:44)
[2019-08-17] MEDS ORDERED: KETOROLAC 30 MG/ML 1 ML VIAL ONE (11:44)
[2019-08-17] MEDS ORDERED: MIDAZOLAM 2 MG/2 ML VIAL ONE (11:44)
[2019-08-17] MEDS ORDERED: SUCCINYLCHOLINE CHLORIDE 100 MG/5 ML SYR IV ONE (11:44)
[2019-08-17] MEDS ORDERED: BUPIVACAINE (PF) 0.25% 30 ML VIAL SQ ONE ×2 (12:00→12:10)
[2019-08-17] MEDS ORDERED: LACTATED RINGERS 1,000 ML IV ONE ×3 (12:01→14:00)
[2019-08-17] MEDS ORDERED: HYDROcodone/APAP 5-325MG 1 EACH TAB PO PRN (12:55)
[2019-08-17] MEDS ORDERED: NALOXONE 0.4 MG/ML 1 ML VIAL IV PRN (12:55)
[2019-08-17 12:59] VITALS: TEMP 97.3
--- NOTE | 2019-08-17 12:59 | P.OP ---
Date of Procedure: 08/17/19 Procedure(s) Performed: PREOPERATIVE DIAGNOSIS: Chronic cholecystitis POSTOPERATIVE DIAGNOSIS: Same PROCEDURE: Laparoscopic cholecystectomy SURGEON: Desmond EBL: Minimal see anesthesia record ANESTHESIA: Gen. COMPLICATIONS: None OPERATIVE PROCEDURE: The patient was brought and placed on the operating room table in the supine position. The patient was placed under general anesthesia at that time. The abdomen was prepped and draped in the usual sterile fashion. A small vertical infraumbilical incision was made. The fascia was grasped with the Daria forceps. The fascia was retracted anteriorly. The Veress needle was advanced into the peritoneal cavity. The saline drop test was normal. Insufflation took place up to 15 mmHg. A 5 mm optical trocar was advanced and the peritoneal cavity. 2 additional 5 mm trochars were placed in the right upper quadrant under direct visualization. A 12 mm trocar was advanced into the epigastric incision site. The gallbladder was retracted superiorly and laterally. The peritoneum overlying the infundibulum was bluntly dissected. The patient's cystic duct was visualized. The junction between the cystic duct common and hepatic duct was identified. The cystic duct was then divided after placement of 3 12 mm clips on the patient's side and one on the specimen side. The cystic artery was identified and clipped as well. A small vessel was seen along the gallbladder fossa and clipped as well. The gallbladder was then removed from the liver bed using electrocautery. The gallbladder was then removed from the epigastric trocar site with an Endo Catch bag. The gallbladder fossa was irrigated with saline. There was no evidence of any bleeding or biliary drainage seen. The fascia at the 12 millimeter site was closed using a Merlin-Gwen 0 Vicryl stitch. The trochars were then removed. The skin at all 4 sites was closed using a 4-0 Monocryl stitch. Skin glue was utilized on the incision sites. At the end of this procedure the sponge and needle counts were correct. DISPOSITION: Stable to the recovery room
[2019-08-17] MEDS: HYDROmorphone 0.5 MG/0.5 ML SYRINGE IVP PRN ×3 (13:05→13:50)
[2019-08-17] MEDS ORDERED: ONDANSETRON 4 MG/2 ML VIAL IVP ONE (13:06)
[2019-08-17] MEDS ORDERED: diphenhydrAMINE 50 MG/ML 1 ML VIAL IVP ONE (13:45)
[2019-08-17 17:32] VITALS: BP 143/89; PULSE 57; RESP 18
== END 2019-08-17 16:04 | disposition home or self-care (01) ==
LOC: OR 10:06
PROVIDERS: ATTEND Surgery
DX: K80.10 Calculus of gallbladder with chronic cholecystitis without obstruction (principal); Z88.2 Allergy status to sulfonamides; Z98.84 Bariatric surgery status; E11.9 Type 2 diabetes mellitus without complications; K21.9 Gastro-esophageal reflux disease without esophagitis; I10 Essential (primary) hypertension; M19.90 Unspecified osteoarthritis, unspecified site; L98.8 Other specified disorders of the skin and subcutaneous tissue; R00.2 Palpitations; G43.909 Migraine, unspecified, not intractable, without status migrainosus; Z86.2 Personal history of diseases of the blood and blood-forming organs and certain disorders involving the immune mechanism; Z87.442 Personal history of urinary calculi; Z98.890 Other specified postprocedural states; Z84.89 Family history of other specified conditions; Z82.3 Family history of stroke; Z81.1 Family history of alcohol abuse and dependence; Z79.899 Other long term (current) drug therapy; Z79.891 Long term (current) use of opiate analgesic; F41.9 Anxiety disorder, unspecified; F32.9 Major depressive disorder, single episode, unspecified; E66.9 Obesity, unspecified; Z68.35 Body mass index [BMI] 35.0-35.9, adult
CPT/HCPCS: 81025; 88304; 47562; J2250; J1200; J1644; J1100; J2710; J0690; J2405; J3010; J1885; J0330; J2704; J1170

== ENCOUNTER → 2019-11-20 | Outpatient (CLI) | payer OTHER ==
[2019-11-20 15:40] VITALS: BP 133/85; PULSE 55; RESP 18; TEMP 98.3
--- NOTE | 2019-11-20 16:50 | P.HPOB ---
History of Present Illness H&P Date: 11/20/19 Chief Complaint: The patient is here for her routine gynecologic exam. This is a 29-year-old G0 with an LMP of 11/07/2019. Her is status post vasectomy. The patient is complaining of occasional left pelvic pains during the past 4 months. She describes the pains as achy, crampy and sharp these pains occur about 6 times per week and can range from 2-8 out of 10. Currently it is 0 out of 10. She states they occur randomly and do not seem to be associated with menstrual periods or activity. There are not associated with sexual activity. She also has noticed occasional genital odor without significant discharge. She has been experiencing some pruritus in the superior vulvar area on the right side near the clitoris. She states she had similar symptoms last year and did briefly use Kenalog cream. She tends to rub the area when it does itch. Review of Systems The patient has lost approximately 147 pounds after having gastric sleeve bariatric surgery in January 2019. She denies respiratory or cardiac problems. GI: Occasional constipation. Past Medical History Past Medical History: Diabetes Mellitus, GERD/Reflux, Hypertension, Osteoarthritis (OA), Skin Disorder Additional Past Medical History / Comment(s): Type 2 diabetes and hypertension are now controlled following weight loss and did not require medications. occ palpitations, migraines, skin rash in winter with dry patches, anemia, hx kidney stone. 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 History of Any Multi-Drug Resistant Organisms: None Reported Past Surgical History: Bariatric Surgery, Cholecystectomy Additional Past Surgical History / Comment(s): 2006 COSMETIC LEFT EYE, gastric sleeve 02/02/19 (Dr. Logan) Past Anesthesia/Blood Transfusion Reactions: No Reported Reaction Additional Past Anesthesia/Blood Transfusion Reaction / Comment(s): MOTHER HAD SEVERE PONV Past Psychological History: Anxiety, Depression Additional Psychological History / Comment(s): . Smoking Status: Never smoker Past Alcohol Use History: Rare (5 per year) Past Drug Use History: None Reported, Marijuana Additional Drug Use History / Comment(s): Uses medical marijuana for arthritis. - Past Family History Mother Family Medical History: CVA/TIA Father Additional Family Medical History / Comment(s): alcoholic Medications and Allergies Home Medications Medication Instructions Recorded Confirmed Type Linzess (Unkn.Dose) 1 tab PO DAILY PRN 08/16/19 11/20/19 History Thiamine [Vitamin B-1] 50 mg PO DAILY 08/16/19 11/20/19 History traMADol HCL [Ultram] 50 mg PO TID PRN 08/16/19 11/20/19 History Allergies Allergy/AdvReac Type Severity Reaction Status Date / Time Sulfa (Sulfonamide Allergy Rash/Hives Verified 11/20/19 15:40 Antibiotics) Exam Vital Signs Temp Pulse Resp BP Pulse Ox 11/20/19 15:37 98.3 F 55 L 18 133/85 100 Intake and Output 11/20/19 11/20/19 11/20/19 06:59 14:59 22:59 Other: Weight 75.296 kg Height 5 feet 3 inches, weight 166 pounds, BMI 29.4. This is a well-developed well-nourished white female who is alert and oriented times 3 in no acute distress. HEENT: Within normal limits. NECK: Supple without mass or thyromegaly. CHEST AND LUNGS: Clear to auscultation. HEART: Regular rate and rhythm. BREASTS: Are without mass or discharge. AXILLARY EXAM: Negative for adenopathy. BACK: Negative for CVA tenderness. ABDOMEN: Soft, nontender, without palpable masses. PELVIC EXAM: External genitalia appears within normal limits. The area that the patient describes pruritus to the right of the clitoris in the superior aspect of the right labia appears normal without palpable masses or lesions. Cervix and vagina appear normal. There is a small amount of thin vaginal discharge without odor. There is no evidence of prolapse. The uterus is midposition, nongravid size and nontender. There are no palpable adnexal masses. There is and minimal left adnexal tenderness. RECTAL EXAM: negative for mass or tenderness. EXTREMITIES: Nontender. IMPRESSION: 1. 29-year-old female whose is status post vasectomy. 2. Intermittent left pelvic pain with a minimal tenderness without mass at this time. Differential diagnosis will include ovarian cyst, pelvic adhesions or pain associated with colonic constipation. 3. Right superior vulvar pruritus in the periclitoral area without significant physical findings at this time. 4. Occasional genital odor with slight discharge. Possible bacterial vaginosis. PLAN: 1. Pap smear was deferred since she had a normal one on 08/22/2018. 2. Self breast awareness was discussed with the patient. 3. Affirm testing for noe, Gardnerella, and Trichomonas was obtained from the vagina. 4. Pelvic ultrasound was recommended and the order slip was given to the patient for this. Consider referral for possible laparoscopic examination if her pains are not improving. 5. Kenalog 0.1% cream twice a day when necessary. I have also asked her to avoid over washing and to avoid scratching the pruritic area near the clitoris. The prescription will be sent to [facility] pharmacy on If her symptoms are not improving and we can consider biopsying this area. 6. She was advised to return in one year for her annual well woman exam and as needed.
[2019-11-21 14:11] LABS: Gardnerella Positive (Negative); Source Vagina; Trichomonas Negative (Negative)
--- NOTE | 2019-11-22 15:40 | P.PN ---
Progress Note - Text Progress Note Date: 11/22/19 I have notified the patient by phone about the Affirm testing that was positive for gardnerella. She has had some vaginal odor on occasion. She will be treated for BV with metronidazole 500mg PO BIDx 7 days. The Rx was sent electronically to [facility] pharmacy on
== END | disposition home or self-care (01) ==
LOC: WWCWWP 15:23
PROVIDERS: ATTEND Obstetrics & Gynecology
DX: N89.8 Other specified noninflammatory disorders of vagina (principal); L29.2 Pruritus vulvae
CPT/HCPCS: 87480; 87510; 87660

== ENCOUNTER → 2020-01-29 | Outpatient (CLI) | payer OTHER | END | disposition home or self-care (01) | LOC: LABWHC1 09:38 | PROVIDERS: ATTEND Family Medicine | DX: Z20.828 Contact with and (suspected) exposure to other viral communicable diseases (principal) | CPT/HCPCS: U0003; C9803 ==

== ENCOUNTER → 2020-02-12 | Outpatient (CLI) | payer OTHER ==
[2020-02-12 14:52] VITALS: BP 163/94; PULSE 76; RESP 16; TEMP 99; BMI 24.2
--- NOTE | 2020-02-12 16:01 | P.BASOAP ---
Subjective Progress Note Date: 02/12/20 Principal diagnosis: Morbid obesity Patient doing very well. She is just over one year postop. Excellent weight loss. Current BMI 24. Patient has had no issues with her kidney stones since last seen. She has had poor follow-up in the bariatric clinic. She did have her gallbladder removed in August. Denies heartburn or vomiting. She does not take antiacids. She does have some rash issues related to her skin folds in the abdomen and upper thigh region. Takes tramadol still intermittently for back pain. She is interested in liver donation and is pursuing that at [facility]. Patient would like a plastic surgery evaluation. She is overdue for lab work. Patient with chronic back issues. Recently complaining of bilateral leg numbness and some increasing numbness right thigh and hip region. Objective - Vital Signs Vital signs: Vital Signs Temp 99 F 02/12/20 14:49 Pulse 76 02/12/20 14:49 Resp 16 02/12/20 14:49 BP 163/94 02/12/20 14:49 Pulse Ox Intake & Output 02/11/20 02/12/20 02/12/20 18:59 06:59 18:59 Weight 63.503 kg - Exam Abdomen: Soft, nontender, nondistended Assessment/Plan (1) Morbid obesity due to excess calories Narrative/Plan: Patient doing fairly well. Numbness is certainly somewhat concerning however. She is overdue for lab work. Previously her B1 level was slightly low and I do not believe she has been taking her vitamins supplementation. We'll check routine labs at this time. Has an appointment with her primary care physician later this week. Recommend either spine or neurologic evaluation. Patient will follow up with me in 6 months in the clinic. We will try to help facilitate plastic surgery evaluation. Plan: Date: 02/12/20 Initial Weight: 137.892 kg Initial BMI: 52.6 Current Weight: 63.503 kg Current BMI: 24.2 Type of Surgery: Total Volume in Band: Previous Volume: Volume Removed: Volume Added: Band Size:
== END | disposition home or self-care (01) ==
LOC: BARWHC3 14:28
PROVIDERS: ATTEND Surgery
DX: E66.01 Morbid (severe) obesity due to excess calories (principal); Z68.24 Body mass index [BMI] 24.0-24.9, adult
CPT/HCPCS: 99211

== ENCOUNTER → 2020-02-22 | Outpatient (CLI) | payer OTHER ==
--- NOTE | 2020-02-22 15:39 | XR ---
Thoracic spine HISTORY: M 54.6, M 54.5 3 views of the thoracic spine Thoracic vertebral bodies show preserved height, alignment, and bone mineralization. There is multile erich spondylosis. Disc spaces relatively preserved. Only 11 rib-bearing vertebral bodies. IMPRESSION: Thoracic spondylosis.
--- NOTE | 2020-02-22 15:41 | XR ---
Lumbar spine HISTORY: M 54.6, M 54.5 3 views of the lumbar spine, correlation thoracic spine same date Surgical clips are present in the right upper quadrant. Lumbar vertebral bodies show preserved height , alignment, and bone mineralization. Transitional vertebral body suspected at L5 level, only 11 rib- bearing thoracic vertebral bodies are noted, T12 shows no rib, large transverse processes. There is m ild multilevel spondylosis, loss of disc height at intervertebral levels. IMPRESSION: Degenerative disc disease. Additional findings above.
== END | disposition home or self-care (01) ==
LOC: RAD 14:24
PROVIDERS: ATTEND Family Medicine
DX: M51.36 Other intervertebral disc degeneration, lumbar region (principal); M47.816 Spondylosis without myelopathy or radiculopathy, lumbar region; M47.814 Spondylosis without myelopathy or radiculopathy, thoracic region
CPT/HCPCS: 72070; 72100

== ENCOUNTER → 2020-03-25 | Outpatient (CLI) | payer OTHER ==
[2020-03-25 16:27] VITALS: BP 146/81; PULSE 72; RESP 18; TEMP 98.1
--- NOTE | 2020-03-25 17:55 | P.HPOB ---
History of Present Illness H&P Date: 03/25/20 Chief Complaint: Vaginal odor and discharge for 3 months. This is a 30-year-old G0 with an LMP of 03/14/2020. Her partner is status post vasectomy. She and her partner, Keyur, are here today because of multiple symptoms. She was last seen here on 11/20/2019 for her well woman examination. She was treated for bacterial vaginosis with metronidazole. She states she did not take the full course of the metronidazole because she forgot. She has had a vaginal discharge along with dark urine since about December 2019. The discharge is a milky creamy type of discharge. In January it was very chunky and she showed me a picture of chunky white discharge in the toilet from January. She denies urinary tract infection symptoms, but the urine has been dark. She has also noticed a significant odor from the vagina and she is afraid that other people will notice the odor. She has had pruritus in the area of the clitoris which she described in November 2019. She has used on occasion the Kenalog cream which was prescribed and this has been helpful. She denies any blisters. She has also noticed a small lumps in the left inner labia which was kidney alcocer size at one point but now has decreased in size to smaller than APD. She had once squeezed this and noticed a liquid that reminded her of milk and oil. She states she has also had very low sex drive. She has been with her partner for 4 years and during the past [address] has been low which has caused a strain on their relationship. She and her partner deny having other sexual partners during therefore 4 year relationship. Review of Systems She has had significant weight loss since her bariatric surgery in 2018. She has lost about 18 pounds since her last appointment here on 11/20/2019. She denies fever, respiratory, cardiac, or GI problems. : As above. She denies U TI symptoms. Past Medical History Past Medical History: Diabetes Mellitus, GERD/Reflux, Hypertension, Osteoarthritis (OA), Skin Disorder Additional Past Medical History / Comment(s): Type 2 diabetes and hypertension are now controlled following weight loss and did not require medications. occ palpitations, migraines, skin rash in winter with dry patches, anemia, hx kidney stone. 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 History of Any Multi-Drug Resistant Organisms: None Reported Past Surgical History: Bariatric Surgery, Cholecystectomy Additional Past Surgical History / Comment(s): 2006 COSMETIC LEFT EYE, gastric sleeve 02/02/19 (Dr. Logan) Past Anesthesia/Blood Transfusion Reactions: No Reported Reaction Additional Past Anesthesia/Blood Transfusion Reaction / Comment(s): MOTHER HAD SEVERE PONV Past Psychological History: Anxiety, Depression Additional Psychological History / Comment(s): . Smoking Status: Unknown if ever smoked Past Alcohol Use History: Rare Past Drug Use History: None Reported, Marijuana Additional Drug Use History / Comment(s): Uses medical marijuana for arthritis. Additional History: She has been with her partner since 2016. They are not technically , but had some type of commitment ceremony. - Past Family History Mother Family Medical History: CVA/TIA Father Additional Family Medical History / Comment(s): alcoholic Medications and Allergies Home Medications Medication Instructions Recorded Confirmed Type traMADol HCL [Ultram] 50 mg PO TID PRN 08/16/19 03/25/20 History Triamcinolone 0.1% Cream [Kenalog 1 applicatio TOPICAL BID PRN #30 gm 11/20/19 03/25/20 Rx 0.1% Cream] FLUoxetine HCL [PROzac] 20 mg PO HS 03/25/20 03/25/20 History Allergies Allergy/AdvReac Type Severity Reaction Status Date / Time Sulfa (Sulfonamide Allergy Rash/Hives Verified 03/25/20 16:27 Antibiotics) Exam Vital Signs Temp Pulse Resp BP Pulse Ox 03/25/20 16:22 98.1 F 72 18 146/81 100 Intake and Output 03/25/20 03/25/20 03/25/20 06:59 14:59 22:59 Other: Weight 67.132 kg Height 5 feet 3-1/2 inches, weight 148 pounds, BMI 25.8. This is a well-developed well-nourished white female who is alert and oriented times 3 in no acute distress. ABDOMEN: Soft, nontender, without palpable masses. The abdomen is nondistended. PELVIC EXAM: External genitalia: There are small areas of ulceration in the periclitoral area as well as along the right labia majora. Cervix and vagina appear normal. There is a moderate amount of grayish discharge which is moderate in consistency. The consistency is similar to that of saliva and is slightly frothy. No significant odor is noted. There is no cervical motion tenderness. There is no evidence of prolapse. The uterus is midposition, nongravid size and minimally tender. There are no palpable adnexal masses and there is minimal bilateral adnexal tenderness. RECTAL EXAM: Deferred EXTREMITIES: Nontender. IMPRESSION: 1. 30-year-old female with complaints of vaginal discharge, vaginal odor, and vulvar pruritus. Differential diagnosis will include Sondra vaginitis, bacterial vaginosis, Trichomonas vaginalis, GC and chlamydia. 2. Vulvar pruritus may be related to #1. There are ulcerated areas which may be consistent with significant scratching but the differential diagnosis will also include genital HSV. 3. Minimal generalized vulvar tenderness on exam. At this time I do not believe this represents pelvic inflammatory disease since there was no cervical motion tenderness. Differential diagnosis will include urinary tract infection GC, chlamydia and chronic pelvic pain. 4. Hypoactive sexual desire disorder. This may be related to the multiple symptoms above. PLAN: 1. HSV testing has been obtained from the small ulcerated areas of the vulva and periclitoral areas. 2. Affirm testing was taken from the vaginal discharge to check for sondra, Gardnerella, and Trichomonas. 3. GC and Chlamydia testing was obtained from the cervix. 4. Urine was sent for UA and C&S. 5. She states she had a pelvic ultrasound done however there is no record of this at [facility]. She believes she may have had it done through her PCP. She will check with her PCP to see if this can be sent to us. She believes it was done around December of this year. 6. We will try to complete the workup for her vaginal and vulvar symptoms before addressing the hypoactive sexual desire disorder. Total time spent with the patient 35 minutes.
--- NOTE | 2020-03-26 17:24 | P.PN ---
Progress Note - Text Progress Note Date: 03/26/20 Test results from 03/25/20 include Affirm testing positive for Garnerella and negative for Sondra and Trichomonas. Urinalysis is positive for nitrites and leukocyte esterase. Impression: UTI and bacterial vaginosis Plan: Macrobid BID x7d PO. Metronidazole 500mg PO BID x7d to start the day after completing the Macrobid. These prescriptions were sent electronically to [facility] on . Await GC and chlamydia testing. The patient will obtain the pelvic US that was recently done through her PCP.
--- NOTE | 2020-04-01 16:59 | P.PN ---
Progress Note - Text Progress Note Date: 04/01/20 OUTPATIENT FOLLOW-UP NOTE TEST(S)/RESULTS: Test results from 03/25/2020 include negative GC and negative chlamydia, negative HSV testing. Also see previous progress note. She was treated for bacterial vaginosis and UTI. Urine culture did grow E. coli which was sensitive to nitrofurantoin. METHOD OF NOTIFICATION: The patient was notified of these results. She is currently finishing the treatment for the UTI. She will be starting the metronidazole for the bacterial vaginosis after completing the Macrobid. PATIENT COMMENTS: The patient has noticed a decrease in vaginal odor. The patient is interested in seeing somebody for her low sex strive. She denies pain with intercourse and has used lubricant for vaginal dryness without much improvement in her sex drive. She states she previously was able to it achieve orgasm with sex or with masturbation. She states currently she is unable to achieve orgasm with sex or masturbation. She has had recent thyroid testing and this was normal according to the patient. She is interested in finding a sex therapist. DIAGNOSIS: UTI and bacterial vaginosis. Hypoactive sexual desire disorder and anorgasmia. DISCUSSION: We have had a long discussion regarding her sexual dysfunction. She understands there are many possible causes for this sexual dysfunction. I will try to find a sexual therapist who may be of help her with these problems. PLAN: As above. She will keep complete her Macrobid course and then start metronidazole for the bacterial vaginosis.
--- NOTE | 2020-04-02 12:46 | P.PN ---
Progress Note - Text Progress Note Date: 04/02/20 I have called the patient today to further address her complaint of low sex drive. She has been on Prozac for more than one year for depression. She states it has been helpful for her depression. We have discussed how Prozac does have the possible side effect of decreasing sex drive. We have discussed how possibly she can consider options of getting off of the Prozac by weaning off or by changing to a different medication. I recommended that she not change anything at this time, but discuss this with her PCP who has been prescribing the Prozac. We have also discussed there are other antidepression medications which may be a better option with respect to affects on sex drive such as Wellbutrin (buprpion). She states she will discuss this with her PCP, Dr. Gross. In the meantime, I will continue to see if there is a sex therapist who also may be able to see her regarding her sexual dysfunction.
--- NOTE | 2020-04-16 13:17 | P.PN ---
Progress Note - Text Progress Note Date: 04/16/20 I spoke with the patient by phone today. She has been experiencing decreased sex drive and anorgasmia. She understands that I recommended that she speak with her PCP about possibly weaning off of Prozac because it its sexual side effects which can include hypoactive sexual desire disorder. She was interested in seeing somebody specifically for these sexual dysfunctions. I have suggested a referral to the [facility]'s women's sexual health and dysfunction clinic. She would like to go ahead with this referral. We will work on making this referral for the patient. She understands that if she is able to wean off of the Prozac with Dr. Bass consent, or change this to a different medication, and she notices significant improvement with her sexual dysfunction, she can cancel the referral.
== END | disposition home or self-care (01) ==
LOC: WWCWWP 16:03
PROVIDERS: ATTEND Obstetrics & Gynecology
DX: Z53.9 Procedure and treatment not carried out, unspecified reason (principal)

== ENCOUNTER → 2020-04-29 | Outpatient (CLI) | payer OTHER | END | disposition home or self-care (01) | LOC: LABWHC1 09:58 | PROVIDERS: ATTEND Nurse Practitioner Family | DX: Z20.828 Contact with and (suspected) exposure to other viral communicable diseases (principal) | CPT/HCPCS: U0003; C9803 ==

== ENCOUNTER → 2020-08-12 | Outpatient (CLI) | payer OTHER ==
[2020-08-12 13:04] VITALS: BP 121/78; PULSE 73; RESP 16; TEMP 98.7; BMI 26.4
[2020-08-12 14:39] LABS: HCT 37.6 % (34.0-46.0); HGB 12.7 gm/dL (11.4-16.0); MCH 30.3 pg (25.0-35.0); MCHC 33.8 g/dL (31.0-37.0); MCV 89.5 fL (80.0-100.0); Mean Platelet Volume 7.2; Platelet Count 228 k/uL (150-450); RDW 12.7 % (11.5-15.5); WBC 7.6 k/uL (3.8-10.6)
--- NOTE | 2020-08-12 15:17 | P.BASOAP ---
Subjective Progress Note Date: 08/12/20 Principal diagnosis: Morbid obesity Patient doing well at this time. Last seen in February of last year. She has not had her annual labs yet. Sleeve gastrectomy January 2019. No longer has any leg numbness although still having hip pain. Is going through physical therapy for her hip discomforts. Has an appointment to see plastic surgery in September. Still has rash beneath pannus. Has had some vertigo issues that she is having investigated. Has gained 13 pounds since her last visit. Denies nausea vomiting. No GERD symptoms. She is not on antiacids. Still takes tramadol for chronic back pain issues. Objective - Vital Signs Vital signs: Vital Signs Temp 98.7 F 08/12/20 12:58 Pulse 73 08/12/20 12:58 Resp 16 08/12/20 12:58 BP 121/78 08/12/20 12:58 Pulse Ox Intake & Output 08/11/20 08/12/20 08/12/20 18:59 06:59 18:59 Weight 69.4 kg - Exam Abdomen: Soft, nontender, nondistended, superficial rash beneath pannus - Labs CBC & Chem 7: 08/12/20 14:09 Assessment/Plan (1) Morbid obesity due to excess calories Narrative/Plan: Patient overall doing fairly well. Await plastic surgery evaluation regarding skin fold irritation. We'll check annual lab work. Follow-up 6 months. Plan: Date: 08/12/20 Initial Weight: 137.892 kg Initial BMI: 52.6 Current Weight: 69.4 kg Current BMI: 26.4 Type of Surgery: Vertical Sleeve Gastrectomy Total Volume in Band: Previous Volume: Volume Removed: Volume Added: Band Size:
[2020-08-12 23:45] LABS: African American GFR (CKD) 133.8 (60.0-200.0); Albumin 4.6 g/dL (3.80-4.90); Albumin/Globulin Ratio 1.77 (1.60-3.17); Anion Gap 7.8 mmol/L (4.00-12.00); Calcium 9.5 mg/dL (8.7-10.3); Carbon Dioxide 26.2 mmol/L (21.6-31.8); Globulin 2.6 g/dL (1.6-3.3); Non-African American GFR(CKD) 115.4 (60.0-200.0); Total Bilirubin 0.4 mg/dL (0.2-1.2); Total Protein 7.2 g/dL (6.2-8.2)
== END | disposition home or self-care (01) ==
LOC: BARWHC3 12:43
PROVIDERS: ATTEND Surgery
DX: E66.01 Morbid (severe) obesity due to excess calories (principal); Z98.84 Bariatric surgery status; Z68.26 Body mass index [BMI] 26.0-26.9, adult; K90.89 Other intestinal malabsorption; E55.9 Vitamin D deficiency, unspecified
CPT/HCPCS: 84425; 80053; 82607; 82746; 83540; 85027; 82306; 36415; G0463; 99211

== ENCOUNTER → 2021-02-17 | Outpatient (CLI) | payer OTHER ==
[2021-02-17 15:37] VITALS: BP 120/65; PULSE 65; TEMP 97.2; BMI 28.5
[2021-02-17 16:28] LABS: HCT 38.2 % (34.0-46.0); HGB 12.4 gm/dL (11.4-16.0); MCH 30.9 pg (25.0-35.0); MCHC 32.5 g/dL (31.0-37.0); Mean Platelet Volume 6.4; Platelet Count 257 k/uL (150-450); RBC 4.02 m/uL (3.80-5.40); RDW 13.1 % (11.5-15.5); WBC 6.9 k/uL (3.8-10.6)
--- NOTE | 2021-02-17 17:00 | P.BASOAP ---
Subjective Progress Note Date: 02/17/21 Principal diagnosis: Morbid obesity Patient returns for recheck. She is approximately 2 years post sleeve gastrectomy. Has lost 3 pounds since her last visit. Now she is only requiring tramadol a few times a month for her back pain. She does complain of mild discomfort at her abdominoplasty incision. She does have a rash because of her skin folds in the thigh region. No longer taking antiacids. No heartburn. Being evaluated for thigh left. Objective - Vital Signs Vital signs: Vital Signs Temp 97.2 F L 02/17/21 15:35 Pulse 65 02/17/21 15:35 Resp BP 120/65 02/17/21 15:35 Pulse Ox Intake & Output 02/16/21 02/17/21 02/17/21 18:59 06:59 18:59 Weight 68.039 kg - Exam Abdomen: Soft, nontender, nondistended - Labs CBC & Chem 7: 02/17/21 16:01 Assessment/Plan (1) Morbid obesity due to excess calories Narrative/Plan: Patient overall doing well. Continue plans for bilateral thigh lift which is reasonable given the patient's recurrent rash. Check to your labs at this time. Follow-up 1 year Plan: Date: 02/17/21 Initial Weight: 137.892 kg Initial BMI: 57.9 Current Weight: 68.039 kg Current BMI: 28.5 Type of Surgery: Total Volume in Band: Previous Volume: Volume Removed: Volume Added: Band Size:
[2021-02-18 04:26] LABS: African American GFR (CKD) 113.1 (60.0-200.0); Albumin 4.4 g/dL (3.80-4.90); Anion Gap 6.8 mmol/L (4.00-12.00); BUN/Creat Ratio 17.5 Ratio (12.00-20.00); Calcium 9.1 mg/dL (8.7-10.3); Carbon Dioxide 27.2 mmol/L (21.6-31.8); Globulin 2.2 g/dL (1.6-3.3); Non-African American GFR(CKD) 97.6 (60.0-200.0); Total Bilirubin 0.3 mg/dL (0.3-1.2); Total Protein 6.6 g/dL (6.2-8.2)
[2021-02-18 04:35] LABS: Folate, Serum 7.6 ng/mL
== END ==
LOC: BARWHC3 14:04
PROVIDERS: ATTEND Surgery
DX: E66.01 Morbid (severe) obesity due to excess calories (principal); R21 Rash and other nonspecific skin eruption; Z88.2 Allergy status to sulfonamides; Z68.28 Body mass index [BMI] 28.0-28.9, adult
CPT/HCPCS: 84425; 80053; 82607; 82746; 83540; 85027; 82306; 36415; G0463; 99211

== ENCOUNTER → 2021-10-28 | Outpatient (CLI) | payer OTHER ==
[2021-10-28 11:31] VITALS: BP 112/74; PULSE 63; RESP 17; TEMP 98.1
--- NOTE | 2021-10-28 13:19 | P.HPOB ---
History of Present Illness H&P Date: 10/28/21 Chief Complaint: The patient is here for her routine gynecologic exam. This is a 31-year-old G0 with an LMP of 10/26/2021. She has been using condoms for control. She is not interested in getting in the immediate future, but may want to get in the next few years. She states her vulvar symptoms have completely resolved. She has been experiencing some odor in the vaginal area and she believes it may be related to her urine. She denies vaginal discharge, dysuria or urinary frequency. She previously was treated for bacterial vaginosis and thinks her symptoms may be similar to this. She previously had been having issues with anorgasmia and decreased sex drive. She states this has totally resolved with a new sexual partner. She believes she has PMDD as well as issues with depression, anxiety and moodiness. Her moodiness does seem to be more severe during the 2 weeks prior to her menstrual period. She is on fluoxetine for a mood disorder and this is prescribed by her PCP. Review of Systems She has lost about 12 pounds over the past 1-1/2 years. She is down about 200 pounds from the time of her bariatric surgery. She denies respiratory, cardiac, or GI problems. Past Medical History Past Medical History: Diabetes Mellitus, GERD/Reflux, Hypertension, Osteoarthritis (OA), Skin Disorder Additional Past Medical History / Comment(s): Type 2 diabetes and hypertension are now controlled following weight loss and does not require medications. Migraine headaches. hx kidney stone. PAST [employer] HISTORY: She has no history of STDs. PMDD. History of Any Multi-Drug Resistant Organisms: None Reported Past Surgical History: Bariatric Surgery, Cholecystectomy Additional Past Surgical History / Comment(s): 2006 COSMETIC LEFT EYE, gastric sleeve 02/02/19 (Dr. Logan). Abdominoplasty 2020. Past Anesthesia/Blood Transfusion Reactions: No Reported Reaction Additional Past Anesthesia/Blood Transfusion Reaction / Comment(s): MOTHER HAD SEVERE PONV Past Psychological History: Anxiety, Depression Additional Psychological History / Comment(s): PMDD. Smoking Status: Never smoker, Vaper Past Alcohol Use History: Occasional (5 per week) Past Drug Use History: Marijuana (Daily use.) Additional Drug Use History / Comment(s): Uses medical marijuana for arthritis. Additional History: She is from her previous partner(technically was not ) and has been with her current partner since November 2020. 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 - Past Family History Mother Family Medical History: CVA/TIA Father Additional Family Medical History / Comment(s): alcoholic Medications and Allergies Home Medications Medication Instructions Recorded Confirmed Type Dextroamphetamine/Amphetamine 30 mg PO DAILY 10/28/21 10/28/21 History [Adderall] FLUoxetine HCL 40 mg PO DAILY 10/28/21 10/28/21 History traMADol HCL 200 mg PO DAILY 10/28/21 10/28/21 History Allergies Allergy/AdvReac Type Severity Reaction Status Date / Time Sulfa (Sulfonamide Allergy Rash/Hives Verified 10/28/21 11:26 Antibiotics) Exam Vital Signs Temp Pulse Resp BP Pulse Ox 10/28/21 11:28 98.1 F 63 17 112/74 100 Intake and Output 10/27/21 10/28/21 10/28/21 22:59 06:59 14:59 Other: Weight 69.853 kg Height 5 feet 3 inches, weight 154 pounds, BMI 27.3. This is a well-developed well-nourished white female who is alert and oriented times 3 in no acute distress. HEENT: Within normal limits. NECK: Supple without mass or thyromegaly. CHEST AND LUNGS: Clear to auscultation. HEART: Regular rate and rhythm. BREASTS: Are without mass or discharge. The right nipple is pierced AXILLARY EXAM: Negative for adenopathy. BACK: Negative for CVA tenderness. ABDOMEN: Soft, nontender, without palpable masses. PELVIC EXAM: Normal external genitalia. Cervix and vagina appear normal. There is a small amount of menstrual blood in the vagina. There is no unusual discharge. No vaginal odor is noted. There is no evidence of prolapse. The uterus is midposition, nongravid size and nontender. There are no palpable adnexal masses or tenderness. RECTAL EXAM: negative for mass or tenderness. EXTREMITIES: Nontender. IMPRESSION: 1. 31-year-old female using condoms with normal gynecologic exam. 2. Subjective complaint of vaginal or urinary odor. No significant physical findings on exam. Differential diagnosis will include bacterial vaginosis, UTI, physiologic odor and Trichomonas. 3. Resolution of vulvar symptoms and sexual dysfunction problems. PLAN: 1. Pap smear cotest was performed. 2. Self breast awareness was discussed with the patient. We have also discussed symptoms associated with inflammatory breast cancer. 3. Affirm vaginitis panel to check for noe, Gardnerella, and Trichomonas. 4. Urinalysis with culture and sensitivity was recommended. She would like to do this after her menstrual period is over. The order slip was given to the patient for this. 5. We have had a long discussion regarding PMDD. I stressed importance of good nutrition, low sodium, low sugar, and limited caffeine diet. I also recommend that she limit alcohol intake. She is on fluoxetine for mood disorder. Has mentioned that this is often used for treatment of PMDD. She describes different mental health issues that she has experienced including mood disorder, depression and anxiety. She states she is looking to establish with a psychiatrist for these problems. She will speak with her PCP about referring her to a psychiatrist. 6. She has not received Covid vaccination and has not had Covid. I have recommended that she look into getting a Covid vaccination and she states she will consider this. 7. She was advised to return in one year for her annual well woman exam and as needed.
[2021-10-29 15:27] LABS: Gardnerella Positive (Negative); Source Vagina; Trichomonas Negative (Negative)
== END ==
LOC: WWCWWP 11:18
PROVIDERS: ATTEND Obstetrics & Gynecology
DX: Z01.419 Encounter for gynecological examination (general) (routine) without abnormal findings (principal); E11.9 Type 2 diabetes mellitus without complications; I10 Essential (primary) hypertension; M19.90 Unspecified osteoarthritis, unspecified site; G43.909 Migraine, unspecified, not intractable, without status migrainosus; F32.A Depression, unspecified; F41.9 Anxiety disorder, unspecified; Z88.2 Allergy status to sulfonamides
CPT/HCPCS: 87480; 87510; 87660